=== PATIENT | female | born 1940 | race Caucasian/White ===

== ENCOUNTER 2020-10-06 07:31 | Emergency (ER) | payer MEDICARE, SELFPAY ==
--- NOTE | ~2020-10-06 | XR_ITS ---
EXAMINATION: XR knee RT 4V CLINICAL INFORMATION: Reason for Exam fall COMPARISON: None available at the time of this dictation. TECHNIQUE: frontal, lateral, tunnel and patella sunrise views FINDINGS: BONES: No fracture or dislocation is present. JOINTS: Mild narrowing of joint spaces suggest degenerative osteoarthritis. SOFT TISSUE: Normal XR/XR knee RT 4V IMPRESSION: Mild DJD.
--- NOTE | ~2020-10-06 | XR_ITS ---
EXAMINATION: XR chest 1V CLINICAL INFORMATION: Fall COMPARISON: None TECHNIQUE: XR chest 1V Tubes and lines: None Lungs and [place]: Mild interstitial peribronchial cuffing nonspecific could be chronic, no dense consolidation. Pleura: Normal. Costophrenic angles are sharp. No pneumothorax. Heart and mediastinum: The mediastinum is within normal limits.. Bones: Skeletal structures included are normal for patient's age. XR/XR chest 1V IMPRESSION: Mild interstitial peribronchial cuffing nonspecific might be chronic. No dense consolidation. No pleural effusion. No evidence of acute thoracic injury.
--- NOTE | ~2020-10-06 | CT_ITS ---
EXAMINATION: CT HEAD WITHOUT CONTRAST CLINICAL INFORMATION: Head pain status post fall, on Coumadin, rule out intracranial abnormality. COMPARISON: None TECHNIQUE: Contiguous axial imaging was performed from the skull base to vertex without intravenous administration of contrast. Coronal and sagittal reformatted images were obtained. This CT examination was performed using dose optimization techniques as appropriate, variously including the following: *Automated exposure control *Adjustment of mA and/or kV according to patient size (this includes techniques or standardized protocols for targeted exams where dose is matched to indication/reason for exam; i.e. extremities or head) *Use of iterative reconstruction technique DLP: 559 mGy-cm FINDINGS: There is no evidence of acute intracranial hemorrhage or territorial infarction. No abnormal mass effect or midline shift is seen. [place] to white matter differentiation is well preserved. No extra-axial fluid collections are identified. The ventricles are normal in size. There is no abnormal attenuation within the brain parenchyma. There is incidental note of prominent hyperostosis frontalis interna. No acute bony calvarium abnormality is seen. The mastoid air cells and visualized portions of the paranasal sinuses are well aerated. CT/CT head/brain wo con IMPRESSION: No acute intracranial pathology.
[2020-10-06 07:35] VITALS: BP 158/70; PULSE 97; RESP 16; TEMP 36.6; O2SAT 98; BMI 34.2
--- NOTE | 2020-10-06 07:36 | ED_ITS ---
HPI - Weakness General Chief complaint: Fall Stated complaint: weakness, little fall Time Seen by Provider: 10/06/20 07:36 Source: patient and EMS Mode of arrival: EMS Limitations: no limitations History of Present Illness HPI Narrative: 80 yo female with HTN, DVT on coumadin notes she got up today and unsure why but she fell, she had no preceding symptoms, no LOC, does not think she hit her head, EMS called for lift assist but patient wanted to be evaluated MD Complaint: generalized weakness Onset (ago): day(s) (today) Duration: improved Location: generalized Migration: none Severity: moderate Quality: tingling Relieving factors: none Exacerbating factors: none Associated symptoms: denies other symptoms Related Data Allergies Allergy/AdvReac Type Severity Reaction Status Date / Time iodine Allergy Rash Verified 10/06/20 07:42 Penicillins [PCN] Allergy Rash Verified 10/06/20 07:42 Review of Systems Review of Systems: Constitutional : No Weight loss, No Fever, No Chills, No Fatigue, No Malaise ENT/Mouth : No sore throat, No Rhinorrhea Eyes: No Eye Pain, No Swelling, No Redness Cardiovascular : No Chest Pain, No SOB, No Dyspnea on Exertion, No Orthopnea, No Edema, No Palpitations Respiratory : No Cough, No Sputum, No Wheezing Gastrointestinal : No Nausea, No Vomiting, No Diarrhea, No Constipation, No ab dominal Pain, No Hematochezia, No Melena Genitourinary : No Dysuria, No Urinary Frequency, No Hematuria, Musculoskeletal : pos R knee joint pain, No Myalgias, No Joint Swelling Skin : No Skin Lesions, No rash Neuro : pos Weakness, No Numbness, No Dizziness, No Headache Psych : No Anxiety/Panic, No Depression All other systems reviewed and are negative [facility] Past Medical History Attestation statement: The following information was validated with the patient. Medical History Diabetes DVT (deep venous thrombosis) Social History Social History Alcohol intake: never Smoked in Last 30 Days: No Use of substances other than those prescribed or required for medical reasons: No Advance Directives: No Advance Directives Information Provided: No Physical Exam Vital Signs: Vital Signs: Last Vital Signs Temp 97.9 F 10/06/20 07:35 Pulse 96 10/06/20 09:30 Resp 16 10/06/20 09:30 BP 147/61 H 10/06/20 09:30 Pulse Ox 96 10/06/20 09:30 Body Mass Index 34.2 Appearance: Alert. Oriented X3. No acute distress. Eyes: Pupils equal, round and reactive to light. ENT: Pharynx normal. Neck: Normal inspection. Neck supple. CVS: Normal heart rate and rhythm. Pulses normal. Respiratory: No respiratory distress. Breath sounds normal. Abdomen: Soft and nontender. Skin: Skin warm and dry. Normal skin color. Normal skin turgor. Extremities: No lower extremity edema. No calf ttp mild ttp R knee Neuro: Oriented X 3. No motor deficit. No sensory deficit. Course Course Course Narrative: feels fine up and to bathroom without issue steady gait can be DC home MDM - Weakness MDM Narrative Medical decision making narrative: 80 yo female with DM, DVT on coumadin who comes in with c/o abrupt fall unsure why this happened denies sig injury no CP/SOB at this time will need labs, EKG, CT head given coumadin use, repeat troponin, ambulation trial dispo per results and findings, patient denies depression and states she is okay Lab Data Result diagrams: 10/06/20 08:36 10/06/20 08:36 Labs: Lab Results 10/06/20 10/06/20 10/06/20 Range/Units 08:36 08:36 08:36 WBC 10.8 (4.8-10.8) X10*3/uL RBC 4.58 (4.20-5.50) X10*6/uL Hgb 13.8 (12.0-16.0) g/dl Hct 42.3 (37-47) % MCV 92.4 (80-98) fL MCH 30.1 (27.0-33.0) pg MCHC 32.6 (31.0-35.0) g/dl RDW 12.8 (11.0-16.0) % Plt Count 294 (160-400) X10*3/uL MPV 10.8 (9.4-12.3) fL Immature Gran % (Auto) 0.7 H (0.0-0.4) % Neut % (Auto) 73.5 H (45-73) % Lymph % (Auto) 14.5 L (20-40) % [place] % (Auto) 6.5 (2-11) % Eos % (Auto) 4.1 H (0-4) % Baso % (Auto) 0.7 (0-2) % Lymph # (Auto) 1.6 (1.2-4.9) X10*3/uL [place] # (Auto) 0.7 (0.1-1.2) X10*3/uL Eos # (Auto) 0.4 (0.0-0.4) X10*3/uL Baso # (Auto) 0.1 (0.0-0.2) X10*3/uL Abs Immat Gran (auto) 0.08 H (0.00-0.03) X10*3/uL Absolute Neuts (auto) 8.0 (2.0-8.3) X10*3/uL Absolute Nucleated RBC 0.000 (0.0-0.012) X10*3/uL Nucleated RBC % (auto) 0.0 (0.0-0.2) /100WBC PT 49.2 H (10.8-13.0) SEC INR 4.1 H (0.9-1.1) APTT 58.9 H (24.1-38.0) SEC Sodium 138 (135-145) mmol/L Potassium 3.7 (3.3-5.1) mmol/L Chloride 105 (96-108) mmol/L Carbon Dioxide 23 (22-29) mmol/L Anion Gap 14 (12-20) BUN 16 (9-16) mg/dL Creatinine 1.00 (0.5-1.4) mg/dL Estim Creat Clear Calc 43.2 Estimated GFR 54 Random Glucose 359 H* (60-115) mg/dL Calcium 9.0 (8.4-10.2) mg/dL Magnesium 2.1 (1.6-2.6) mg/dL Total Bilirubin 0.4 (0.0-1.0) mg/dL Direct Bilirubin 0.2 (0.0-0.5) mg/dL AST 10 (5-31) U/L ALT 11 (0-31) U/L Alkaline Phosphatase 98 (39-117) U/L Total Creatine Kinase 45 (26-140) U/L Troponin I High Sens (<3.5-17.0) ng/L Total Protein 7.0 (6.5-8.0) g/dL Albumin 3.9 (3.5-5.0) g/dL Urine Color Urine Appearance Urine pH (5.0-8.0) Ur Specific [place] (1.005-1.025) Urine Protein (NEG-TRACE) MG/DL Urine Glucose (UA) (NEG) MG/DL Urine Ketones (NEG) MG/DL Urine Blood (NEG) Urine Nitrite (NEG) Ur Leukocyte Esterase (NEG) Urine RBC (0) /HPF Urine WBC (0-4) /HPF Urine WBC Clumps Ur Squamous Epith Cells /LPF Urine Bacteria /LPF COVID-19 (MANDEEP) (Negative) COVID-19 Clin Com 10/06/20 10/06/20 10/06/20 Range/Units 08:36 08:36 08:36 WBC (4.8-10.8) X10*3/uL RBC (4.20-5.50) X10*6/uL Hgb (12.0-16.0) g/dl Hct (37-47) % MCV (80-98) fL MCH (27.0-33.0) pg MCHC (31.0-35.0) g/dl RDW (11.0-16.0) % Plt Count (160-400) X10*3/uL MPV (9.4-12.3) fL Immature Gran % (Auto) (0.0-0.4) % Neut % (Auto) (45-73) % Lymph % (Auto) (20-40) % [place] % (Auto) (2-11) % Eos % (Auto) (0-4) % Baso % (Auto) (0-2) % Lymph # (Auto) (1.2-4.9) X10*3/uL [place] # (Auto) (0.1-1.2) X10*3/uL Eos # (Auto) (0.0-0.4) X10*3/uL Baso # (Auto) (0.0-0.2) X10*3/uL Abs Immat Gran (auto) (0.00-0.03) X10*3/uL Absolute Neuts (auto) (2.0-8.3) X10*3/uL Absolute Nucleated RBC (0.0-0.012) X10*3/uL Nucleated RBC % (auto) (0.0-0.2) /100WBC PT (10.8-13.0) SEC INR (0.9-1.1) APTT (24.1-38.0) SEC Sodium (135-145) mmol/L Potassium (3.3-5.1) mmol/L Chloride (96-108) mmol/L Carbon Dioxide (22-29) mmol/L Anion Gap (12-20) BUN (9-16) mg/dL Creatinine (0.5-1.4) mg/dL Estim Creat Clear Calc Estimated GFR Random Glucose (60-115) mg/dL Calcium (8.4-10.2) mg/dL Magnesium (1.6-2.6) mg/dL Total Bilirubin (0.0-1.0) mg/dL Direct Bilirubin (0.0-0.5) mg/dL AST (5-31) U/L ALT (0-31) U/L Alkaline Phosphatase (39-117) U/L Total Creatine Kinase (26-140) U/L Troponin I High Sens < 3.5 (<3.5-17.0) ng/L Total Protein (6.5-8.0) g/dL Albumin (3.5-5.0) g/dL Urine Color YELLOW Urine Appearance CLOUDY Urine pH 6.0 (5.0-8.0) Ur Specific [place] 1.015 (1.005-1.025) Urine Protein TRACE (NEG-TRACE) MG/DL Urine Glucose (UA) >=1000 H (NEG) MG/DL Urine Ketones NEG (NEG) MG/DL Urine Blood 2+ H (NEG) Urine Nitrite POS H (NEG) Ur Leukocyte Esterase 1+ H (NEG) Urine RBC 1-4 (0) /HPF Urine WBC 76-150 H (0-4) /HPF Urine WBC Clumps NOTED Ur Squamous Epith Cells NONE /LPF Urine Bacteria 1+ /LPF COVID-19 (MANDEEP) Negative (Negative) COVID-19 Clin Com See Note 10/06/20 Range/Units 10:38 WBC (4.8-10.8) X10*3/uL RBC (4.20-5.50) X10*6/uL Hgb (12.0-16.0) g/dl Hct (37-47) % MCV (80-98) fL MCH (27.0-33.0) pg MCHC (31.0-35.0) g/dl RDW (11.0-16.0) % Plt Count (160-400) X10*3/uL MPV (9.4-12.3) fL Immature Gran % (Auto) (0.0-0.4) % Neut % (Auto) (45-73) % Lymph % (Auto) (20-40) % [place] % (Auto) (2-11) % Eos % (Auto) (0-4) % Baso % (Auto) (0-2) % Lymph # (Auto) (1.2-4.9) X10*3/uL [place] # (Auto) (0.1-1.2) X10*3/uL Eos # (Auto) (0.0-0.4) X10*3/uL Baso # (Auto) (0.0-0.2) X10*3/uL Abs Immat Gran (auto) (0.00-0.03) X10*3/uL Absolute Neuts (auto) (2.0-8.3) X10*3/uL Absolute Nucleated RBC (0.0-0.012) X10*3/uL Nucleated RBC % (auto) (0.0-0.2) /100WBC PT (10.8-13.0) SEC INR (0.9-1.1) APTT (24.1-38.0) SEC Sodium (135-145) mmol/L Potassium (3.3-5.1) mmol/L Chloride (96-108) mmol/L Carbon Dioxide (22-29) mmol/L Anion Gap (12-20) BUN (9-16) mg/dL Creatinine (0.5-1.4) mg/dL Estim Creat Clear Calc Estimated GFR Random Glucose (60-115) mg/dL Calcium (8.4-10.2) mg/dL Magnesium (1.6-2.6) mg/dL Total Bilirubin (0.0-1.0) mg/dL Direct Bilirubin (0.0-0.5) mg/dL AST (5-31) U/L ALT (0-31) U/L Alkaline Phosphatase (39-117) U/L Total Creatine Kinase (26-140) U/L Troponin I High Sens < 3.5 (<3.5-17.0) ng/L Total Protein (6.5-8.0) g/dL Albumin (3.5-5.0) g/dL Urine Color Urine Appearance Urine pH (5.0-8.0) Ur Specific [place] (1.005-1.025) Urine Protein (NEG-TRACE) MG/DL Urine Glucose (UA) (NEG) MG/DL Urine Ketones (NEG) MG/DL Urine Blood (NEG) Urine Nitrite (NEG) Ur Leukocyte Esterase (NEG) Urine RBC (0) /HPF Urine WBC (0-4) /HPF Urine WBC Clumps Ur Squamous Epith Cells /LPF Urine Bacteria /LPF COVID-19 (MANDEEP) (Negative) COVID-19 Clin Com ECG Data Attestation: I personally reviewed and interpreted this ECG as follows: ECG interpretation date: 10/06/20 ECG interpretation time: 08:05 Interpretation: Rate: 92 Rhythm: NSR [place]: left Normal P waves. Normal KAREN. Normal QRS complex. ST T wave : normal , no SAL qTC: normal prior studies: no acute ischemia The study has been interpreted contemporaneously by me. . Discharge Plan Discharge Clinical Impression: Fall, Elevated INR Patient Disposition: Home, Self-Care Instructions: Fall Prevention (ED), Elevated INR (ED) Additional Instructions: INR 4.1 please hold coumadin for 1 day return to ED for any worsening symptoms or concerns Referrals: Fortino Partida MD [Primary Care Provider] - 2 days
--- NOTE | 2020-10-06 07:43 | ECG_ITS ---
Test Reason : GENERAL WEAKNESS Blood Pressure : / mmHG Vent. Rate : 092 BPM Atrial Rate : 092 BPM P-R Int : 170 ms QRS Dur : 088 ms QT Int : 344 ms P-R-T Axes : 045 007 037 degrees QTc Int : 425 ms Normal sinus rhythm Normal ECG No previous ECGs available Referred By: Jojo Roy Electronically Signed By:HIMANSHU HERRERA
[2020-10-06 08:52] LABS: MANUAL DIFF FLAG NO
[2020-10-06 08:56] LABS: Basophils Absolute Auto 0.1 X10*3/uL (0.0-0.2); Basophils Percent Auto 0.7 % (0-2); Eosinophils Absolute Auto 0.4 X10*3/uL (0.0-0.4); Eosinophils Percent Auto 4.1 % (0-4); Hematocrit 42.3 % (37-47); Hemoglobin 13.8 g/dl (12.0-16.0); Imm Gran Abs Auto 0.08 X10*3/uL (0.00-0.03); Imm Gran Pct Auto 0.7 % (0.0-0.4); Lymphocytes Absolute Auto 1.6 X10*3/uL (1.2-4.9); Lymphocytes Percent Auto 14.5 % (20-40); Mean Corpuscular HGB Conc 32.6 g/dl (31.0-35.0); Mean Corpuscular Hemoglobin 30.1 pg (27.0-33.0); Mean Corpuscular Volume 92.4 fL (80-98); Mean Platelet Volume 10.8 fL (9.4-12.3); Monocytes Absolute Auto 0.7 X10*3/uL (0.1-1.2); Monocytes Percent Auto 6.5 % (2-11); Neutrophils Percent Auto 73.5 % (45-73); Platelet Count 294 X10*3/uL (160-400); Red Blood Count 4.58 X10*6/uL (4.20-5.50); Red Cell Distribution Width 12.8 % (11.0-16.0); White Blood Count 10.8 X10*3/uL (4.8-10.8)
[2020-10-06 09:01] LABS: Glucose Urine UA >=1000 MG/DL (NEG); Leukocyte Esterase Urine 1+ (NEG); Nitrite Urine POS (NEG); Specific Gravity - Urine 1.015 (1.005-1.025); UACC Culture Trigger YES; Urine Blood 2+ (NEG); Urine Ketones NEG (NEG); Urine Protein TRACE MG/DL (NEG-TRACE)
[2020-10-06 09:02] LABS: Appearance Urine CLOUDY; Color Urine YELLOW
[2020-10-06 09:07] LABS: COVID-19 Test Negative (Negative)
[2020-10-06 09:09] LABS: INTERNATIONAL NORM RATIO 4.1 (0.9-1.1); Prothrombin Time 49.2 SEC (10.8-13.0)
[2020-10-06 09:12] LABS: Bacteria Urine 1+ /LPF; Partial Thromboplastin Time 58.9 SEC (24.1-38.0); WBC Clumps Urine NOTED
[2020-10-06 09:19] LABS: Alanine Aminotransferase 11 U/L (0-31); Albumin Level 3.9 g/dL (3.5-5.0); Alkaline Phosphatase 98 U/L (39-117); Anion Gap 14 (12-20); Aspartate Amino Transferase 10 U/L (5-31); Bilirubin Direct 0.2 mg/dL (0.0-0.5); Bilirubin Total 0.4 mg/dL (0.0-1.0); Blood Urea Nitrogen 16 mg/dL (9-16); Carbon Dioxide 23 mmol/L (22-29); Chloride 105 mmol/L (96-108); Creatinine Clr Calc Pharmacy 43.2; Estimated Glomerular Filt Rate 54; Glucose Random 359 mg/dL (60-115); Magnesium 2.1 mg/dL (1.6-2.6); Potassium 3.7 mmol/L (3.3-5.1); Sodium 138 mmol/L (135-145); Troponin-I High Sensitivity < 3.5 ng/L (<3.5-17.0)
[2020-10-06 09:30] VITALS: BP 147/61; PULSE 96; RESP 16; O2SAT 96
--- NOTE | 2020-10-06 09:44 | PC.NURSE ---
With pt's permission, her granddaughter was updated with pts status. Pt ambulated to BR with minimal assist.
[2020-10-06 11:10] LABS: Troponin-I High Sensitivity < 3.5 ng/L (<3.5-17.0)
== END 2020-10-06 12:04 | disposition home or self-care (01) ==
PROVIDERS: Emergency Provider Emergency Medicine; PCP Internal Medicine
DX: R79.1 Abnormal coagulation profile (principal); Z91.81 History of falling; Z20.822 Contact with and (suspected) exposure to COVID-19; E11.9 Type 2 diabetes mellitus without complications; Z86.718 Personal history of other venous thrombosis and embolism; Z79.01 Long term (current) use of anticoagulants
CPT/HCPCS: 36415; 70450; 71045; 73564; 80048; 80076; 81001; 81003; 82550; 83735; 84484; 85025; 85610; 85730; 87086; 87088; 87186; 87635; 93005; 99284

== ENCOUNTER 2021-04-04 11:58 | Inpatient (IN) | payer MEDICARE, SELFPAY ==
--- NOTE | ~2021-04-04 | CT_ITS ---
EXAMINATION: CT BRAIN AND CT CERVICAL SPINE WITHOUT CONTRAST. CLINICAL INFORMATION: Fall on Coumadin. COMPARISON: None TECHNIQUE: 5 mm thin axial and reformatted 2 mm thin sagittal and coronal images of brain were obtained. Subsequently 3 mm thin axial and reformatted 2 mm within sagittal and coronal images of cervical spine were obtained. DL [id number] FINDINGS: BRAIN: There is no acute intra-axial, extra-axial bleed, masses or midline shift. There is no acute infarct in evolution. There is no edema. The redding to white differentiation maintained. The lateral ventricles are symmetrical in size and configuration without enlargement. There is benign hyperostosis frontalis interna. No calvarial fracture abnormality seen. There is no scalp soft tissue abnormality. Bilateral paranasal sinuses and mastoid air cells are well-aerated. CERVICAL SPINE: There is mild straightening of cervical lordosis. The vertebral heights and alignment is normal. There is loss of C2-C3, C3-C4, C5-C6, C6-C7 and C7-T1 disc heights. There is no acute fracture, dislocation or subluxation. The craniovertebral junction and the C1-C2 alignment is normal. The central trachea and airway is widely patent. Visualized bilateral parotid, submandibular and thyroid lobes are symmetrical. No neck mass or abnormal lymphadenopathy seen. The lung apices are clear. CT/CT cervical spine wo con IMPRESSION: No acute intracranial process seen. No acute fracture, dislocation or subluxation cervical spine. There is mild straightening of cervical lordosis. There are degenerative disc changes C2-C3, C3-C4, C5-C6, C6-C7 and C7-T1 disc levels.
--- NOTE | ~2021-04-04 | CT_ITS ---
EXAMINATION: CT BRAIN AND CT CERVICAL SPINE WITHOUT CONTRAST. CLINICAL INFORMATION: Fall on Coumadin. COMPARISON: None TECHNIQUE: 5 mm thin axial and reformatted 2 mm thin sagittal and coronal images of brain were obtained. Subsequently 3 mm thin axial and reformatted 2 mm within sagittal and coronal images of cervical spine were obtained. DL [id number] FINDINGS: BRAIN: There is no acute intra-axial, extra-axial bleed, masses or midline shift. There is no acute infarct in evolution. There is no edema. The redding to white differentiation maintained. The lateral ventricles are symmetrical in size and configuration without enlargement. There is benign hyperostosis frontalis interna. No calvarial fracture abnormality seen. There is no scalp soft tissue abnormality. Bilateral paranasal sinuses and mastoid air cells are well-aerated. CERVICAL SPINE: There is mild straightening of cervical lordosis. The vertebral heights and alignment is normal. There is loss of C2-C3, C3-C4, C5-C6, C6-C7 and C7-T1 disc heights. There is no acute fracture, dislocation or subluxation. The craniovertebral junction and the C1-C2 alignment is normal. The central trachea and airway is widely patent. Visualized bilateral parotid, submandibular and thyroid lobes are symmetrical. No neck mass or abnormal lymphadenopathy seen. The lung apices are clear. CT/CT head/brain wo con IMPRESSION: No acute intracranial process seen. No acute fracture, dislocation or subluxation cervical spine. There is mild straightening of cervical lordosis. There are degenerative disc changes C2-C3, C3-C4, C5-C6, C6-C7 and C7-T1 disc levels.
--- NOTE | ~2021-04-04 | CT_ITS ---
EXAMINATION: CTA CHEST PE STUDY CLINICAL INFORMATION: syncope, hx DVT w/ subtherapeutic INR, elevated DDIMER COMPARISON: No pertinent prior studies are available for comparison. TECHNIQUE: Prior to contrast administration, noncontrast localization images were obtained. After the administration of 75 mL of Omnipaque 350 IV contrast, contiguous thin slice helical images were obtained through the thorax. Reformatted MIP images in the coronal and sagittal planes were obtained at the acquisition workstation. This CT examination was performed using dose optimization techniques as appropriate, variously including the following: *Automated exposure control *Adjustment of mA and/or kV according to patient size (this includes techniques or standardized protocols for targeted exams where dose is matched to indication/reason for exam; i.e. extremities or head) *Use of iterative reconstruction technique DLP: 410 mGy-cm. FINDINGS: The bolus timing on this study was acceptable for visualization of the pulmonary arterial tree. There are no intraluminal pulmonary arterial filling defects present to suggest central pulmonary embolism. Distal branch vessels are partially obscured by motion artifact but no definitive pulmonary emboli seen. There is asymmetric elevation of the right hemidiaphragm. Minimal dependent atelectatic changes. Otherwise the lungs are clear. No abnormal pulmonary nodules or masses are appreciated. No significant hilar or mediastinal adenopathy. There is no evidence of pleural effusion or pneumothorax. The heart is normal in size. No evidence of ventricular septal bowing or right heart strain. Great vessels are normal. Otherwise the mediastinum is unremarkable. There is no pericardial effusion or pericardial thickening. Limited evaluation of the upper abdominal viscera demonstrates scattered splenic granulomas. CT/CT angio chest PE protocol IMPRESSION: No evidence for central pulmonary emboli. Distal branch vessels are partially obscured by motion but otherwise unremarkable. No focal airspace disease. VTE: Negative
--- NOTE | 2021-04-04 12:08 | ECG_ITS ---
Test Reason : FALL Blood Pressure : / mmHG Vent. Rate : 088 BPM Atrial Rate : 088 BPM P-R Int : 154 ms QRS Dur : 084 ms QT Int : 372 ms P-R-T Axes : 037 002 050 degrees QTc Int : 450 ms Normal sinus rhythm Otherwise normal ECG When compared with ECG of 06-OCT-2020 08:01, No significant changes seen Referred By: Ann-Marie Kelly Electronically Signed By:Seng Hatch
--- NOTE | 2021-04-04 12:21 | ED_ITS ---
HPI - Syncope General Chief Complaint: Fall Stated Complaint: fall Time Seen by Provider: 04/04/21 12:07 Source: patient and EMS Mode of arrival: EMS Limitations: no limitations History of Present Illness HPI narrative: 80 y/o female with history of diabetes, HTN, DVT on Coumadin, history of fall in Sep 2019, hx UTI, DM who presents to the ER from home via EMS after her cleaning lady found her on the floor this morning. She was covered in urine and stool. She has not recollection of falling or any events preceding her fall. She denies any specific joint pain and reports being sore all over. She also c/o some left sided neck pain. No headache. She does not know if she lost consciousness and does not know how long she was on the floor. EMS reports possible syncopal event last night. MD complaint: collapsed Onset (ago): unknown Description of event: post-event confusion and incontinence Prodromal symptoms: none Witnessed: No Injuries sustained associated with event: none Current symptoms: back to baseline Treatments prior to arrival: none Related Data Home Medications Medication Instructions Recorded Confirmed furosemide 20 mg tablet 1 tab PO DAILY 04/04/21 04/04/21 glipizide 5 mg tablet 1 tab PO BID 04/04/21 04/04/21 warfarin 4 mg tablet 1 tab PO DAILY 04/04/21 04/04/21 Allergies Allergy/AdvReac Type Severity Reaction Status Date / Time iodine Allergy Rash Verified 10/06/20 07:42 Penicillins [PCN] Allergy Rash Verified 10/06/20 07:42 Review of Systems Constitutional: Constitutional: Reports body ache(s), Denies chills, Denies fever(s), Denies headache(s), Reports malaise and Reports weakness Eyes: Eyes: Reports no additional eye complaints ENT: Denies headache(s), Reports neck pain and Denies sore throat Cardiovascular: Cardiovascular: Denies cool extremities, Denies chest pain, Denies chest pain at rest, Denies edema, Denies lightheadedness and Denies dyspnea Respiratory: Respiratory: Denies chest congestion, Denies cough, Denies pain on inspiration, Denies dyspnea and Denies wheezing Gastrointestinal: Gastrointestinal: Denies abdominal pain, Denies diarrhea, Denies nausea and Denies vomiting Genitourinary: Genitourinary: Denies hematuria and Denies dysuria Musculoskeletal: Musculoskeletal: Reports myalgias, Reports neck pain and Reports stiffness Integumentary/Breasts: Skin/Breast: Denies rash Neurologic: Reports confusion, Denies headache(s), Denies focal weakness, Reports memory loss, Denies seizure-like activity and Reports weakness Psychiatric: Psychiatric: Reports confusion and Reports memory loss Hematologic/Lymphatic: Hematologic/Lymphatic: Denies easy bleeding and Denies easy bruising Allergic/Immunologic: Allergic/Immunologic: Denies wheezing PMFSH Past Medical History Attestation statement: The following information was validated with the patient. Medical History Diabetes DVT (deep venous thrombosis) Social History Social History Alcohol intake: never Advance Directives: No Advance Directives Information Provided: Yes Physical Exam Vital Signs: Vital Signs: Last Vital Signs Temp 98.1 F 04/04/21 14:38 Pulse 96 04/04/21 14:38 Resp 21 H 04/04/21 14:38 BP 156/94 H 04/04/21 14:38 Pulse Ox 95 04/04/21 14:38 Body Mass Index 34.9 Appearance: Alert. Oriented X3. No acute distress. Head: atraumatic, normocephalic Eyes: Pupils equal, round and reactive to light. ENT: Pharynx normal. Neck: Normal inspection. Neck supple. No cervical spinal tenderness, mild left sided soft tissue tenderness. CVS: Normal heart rate and rhythm. Pulses normal. Respiratory: No respiratory distress. Breath sounds normal. Abdomen: Obese, Soft and nontender. +BS x4 Skin: Skin warm and dry. Normal skin color. Normal skin turgor. No rashes. Extremities: Atraumatic. No lower extremity edema. Diffuse soft tissue tenderness and joint tenderness. No point tenderness. No skin changes. Neuro: AAOx3, follow simple commands. moves all extremities. Ambulates with a slow but steady gait with help of a walker Const: General: confusion Orientation/consciousness: confusion Neuro: General: confusion Course Course Course Narrative: 80 y/o female with history of HTN, DM, hx DVT previously on Coumadin presenting with possible syncopal event vs fall with prolonged downtime. Events unclear. She is hemodynamically stable on arrival. Covered in urine and stool. She reports body aches and pains but no specific joint. No headache. She reports some left sided neck pain, worse with movement. No focal neuro deficits but very confused with events - does not remember falling OR deshaun ng on the floor at all. Will get CT head/neck, EKG, CPK, UA, lab and infectious workup. Anticipate admission. Reevaluation(s) Reevaluation #1: Glucose 360's. BUN elevated 38 & mild elevation of CPK, likely mild dehydration. INR is subtherapeutic at 1.2. She reports she is still on Coumadin but she has been forgetting to take her medications. She does not know the names of her meds. Pharmacy med rec order placed - apparently patient uses a mail order pharmacy out of [place] and there is no local claim history of current med list is unknown. Given her syncopal event and subtherapeutic INR will plan for CTA chest to r/o PE as possible etiology. Reevaluation #2: Delay in CTA due to inadequate IV access. Nursing placed US guided PIV for CTA. Straight cath urine same grossly positive for infection. Hx Kelbsiella UTI in the past sensitive to cephalosporins - IV rocephin ordered as well as blood cultures. Lactic acid is normal. She remains afebrile and hemodynamically stable and is ambulating with a slow but steady gait with the assistance of 1 and a walker. Reevaluation #3: CTA pending. Patient remains somewhat confused and is difficult to obtain a history from. Likely from infection/. She reports DVT x2 and is on lifelong anticoagulation. Will give dose of SC lovenox now. Additional Reevaluation(s): CTA Negative for central PE. 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 Dr. Serrano TT for admission at 5:29pm. MDM - Syncope Medical Records Attestation: I reviewed the patient's medical records. Lab Data Attestation: I reviewed the patient's lab results. Result diagrams: 04/04/21 13:10 04/04/21 13:10 Labs: Lab Results 04/04/21 04/04/21 04/04/21 Range/Units 13:10 13:10 13:10 WBC 12.9 H (4.8-10.8) X10*3/uL RBC 5.07 (4.20-5.50) X10*6/uL Hgb 15.1 (12.0-16.0) g/dl Hct 46.3 (37-47) % MCV 91.3 (80-98) fL MCH 29.8 (27.0-33.0) pg MCHC 32.6 (31.0-35.0) g/dl RDW 13.1 (11.0-16.0) % Plt Count 322 (160-400) X10*3/uL MPV 10.7 (9.4-12.3) fL Immature Gran % (Auto) 0.6 H (0.0-0.4) % Neut % (Auto) 78.0 H (45-73) % Lymph % (Auto) 12.0 L (20-40) % [place] % (Auto) 7.2 (2-11) % Eos % (Auto) 1.7 (0-4) % Baso % (Auto) 0.5 (0-2) % Lymph # (Auto) 1.6 (1.2-4.9) X10*3/uL [place] # (Auto) 0.9 (0.1-1.2) X10*3/uL Eos # (Auto) 0.2 (0.0-0.4) X10*3/uL Baso # (Auto) 0.1 (0.0-0.2) X10*3/uL Abs Immat Gran (auto) 0.08 H (0.00-0.03) X10*3/uL Absolute Neuts (auto) 10.1 H (2.0-8.3) X10*3/uL Absolute Nucleated RBC 0.000 (0.0-0.012) X10*3/uL Nucleated RBC % (auto) 0.0 (0.0-0.2) /100WBC PT 13.2 H (9.9-13.0) SEC INR 1.2 H (0.9-1.1) APTT 28.4 (24.1-38.0) SEC D-Dimer 390 NG/ML Sodium 139 (135-145) mmol/L Potassium 4.2 (3.3-5.1) mmol/L Chloride 103 (96-108) mmol/L Carbon Dioxide 21 L (22-29) mmol/L Anion Gap 19 (12-20) BUN 38 H D (9-16) mg/dL Creatinine 1.26 (0.5-1.4) mg/dL Estim Creat Clear Calc 36.1 Estimated GFR 41 Random Glucose 369 H* (60-115) mg/dL Lactic Acid (0.5-2.0) mmol/L Calcium 10.0 D (8.4-10.2) mg/dL Magnesium 2.4 (1.6-2.6) mg/dL Total Bilirubin 0.8 (0.0-1.0) mg/dL Direct Bilirubin 0.4 (0.0-0.5) mg/dL AST 22 D (5-31) U/L ALT 24 (0-31) U/L Alkaline Phosphatase 107 (39-117) U/L Total Creatine Kinase 280 H D (26-140) U/L Total Protein 7.6 (6.5-8.0) g/dL Albumin 4.2 (3.5-5.0) g/dL Urine Color Urine Appearance Urine pH (5.0-8.0) Ur Specific [place] (1.005-1.025) Urine Protein (NEG-TRACE) MG/DL Urine Glucose (UA) (NEG) MG/DL Urine Ketones (NEG) MG/DL Urine Blood (NEG) Urine Nitrite (NEG) Ur Leukocyte Esterase (NEG) Urine RBC (0) /HPF Urine WBC (0-4) /HPF Ur Squamous Epith Cells /LPF Ur Renal Epithelial Cell /LPF Urine Bacteria /LPF 04/04/21 04/04/21 Range/Units 13:10 14:59 WBC (4.8-10.8) X10*3/uL RBC (4.20-5.50) X10*6/uL Hgb (12.0-16.0) g/dl Hct (37-47) % MCV (80-98) fL MCH (27.0-33.0) pg MCHC (31.0-35.0) g/dl RDW (11.0-16.0) % Plt Count (160-400) X10*3/uL MPV (9.4-12.3) fL Immature Gran % (Auto) (0.0-0.4) % Neut % (Auto) (45-73) % Lymph % (Auto) (20-40) % [place] % (Auto) (2-11) % Eos % (Auto) (0-4) % Baso % (Auto) (0-2) % Lymph # (Auto) (1.2-4.9) X10*3/uL [place] # (Auto) (0.1-1.2) X10*3/uL Eos # (Auto) (0.0-0.4) X10*3/uL Baso # (Auto) (0.0-0.2) X10*3/uL Abs Immat Gran (auto) (0.00-0.03) X10*3/uL Absolute Neuts (auto) (2.0-8.3) X10*3/uL Absolute Nucleated RBC (0.0-0.012) X10*3/uL Nucleated RBC % (auto) (0.0-0.2) /100WBC PT (9.9-13.0) SEC INR (0.9-1.1) APTT (24.1-38.0) SEC D-Dimer NG/ML Sodium (135-145) mmol/L Potassium (3.3-5.1) mmol/L Chloride (96-108) mmol/L Carbon Dioxide (22-29) mmol/L Anion Gap (12-20) BUN (9-16) mg/dL Creatinine (0.5-1.4) mg/dL Estim Creat Clear Calc Estimated GFR Random Glucose (60-115) mg/dL Lactic Acid 1.8 (0.5-2.0) mmol/L Calcium (8.4-10.2) mg/dL Magnesium (1.6-2.6) mg/dL Total Bilirubin (0.0-1.0) mg/dL Direct Bilirubin (0.0-0.5) mg/dL AST (5-31) U/L ALT (0-31) U/L Alkaline Phosphatase (39-117) U/L Total Creatine Kinase (26-140) U/L Total Protein (6.5-8.0) g/dL Albumin (3.5-5.0) g/dL Urine Color YELLOW Urine Appearance TURBID Urine pH 6.0 (5.0-8.0) Ur Specific [place] 1.025 (1.005-1.025) Urine Protein 1+ H (NEG-TRACE) MG/DL Urine Glucose (UA) >=1000 H (NEG) MG/DL Urine Ketones 40 (NEG) MG/DL Urine Blood 2+ H (NEG) Urine Nitrite POS H (NEG) Ur Leukocyte Esterase 2+ H (NEG) Urine RBC 0-2 (0) /HPF Urine WBC TNTC H (0-4) /HPF Ur Squamous Epith Cells NONE /LPF Ur Renal Epithelial Cell TRACE /LPF Urine Bacteria 1+ /LPF ECG Data Attestation: I personally reviewed and interpreted this ECG as follows: Prior ECG tracings: available for review Interpretation: normal sinus rhythm, HR 88 bpm, artifact present, q wave present in lead III, no ST segment elevations or depressions. Discharge Plan Discharge Clinical Impression: Syncope, Acute UTI, Subtherapeutic international normalized ratio (INR), Acute metabolic encephalopathy Patient Disposition: Admitted As Inpatient
[2021-04-04 12:44] VITALS: BP 143/70; RESP 18; TEMP 36.6; O2SAT 97; BMI 34.9
[2021-04-04 13:17] LABS: MANUAL DIFF FLAG NO
[2021-04-04 13:19] LABS: Basophils Absolute Auto 0.1 X10*3/uL (0.0-0.2); Basophils Percent Auto 0.5 % (0-2); Eosinophils Absolute Auto 0.2 X10*3/uL (0.0-0.4); Eosinophils Percent Auto 1.7 % (0-4); Hematocrit 46.3 % (37-47); Hemoglobin 15.1 g/dl (12.0-16.0); Imm Gran Abs Auto 0.08 X10*3/uL (0.00-0.03); Imm Gran Pct Auto 0.6 % (0.0-0.4); Lymphocytes Absolute Auto 1.6 X10*3/uL (1.2-4.9); Mean Corpuscular HGB Conc 32.6 g/dl (31.0-35.0); Mean Corpuscular Hemoglobin 29.8 pg (27.0-33.0); Mean Corpuscular Volume 91.3 fL (80-98); Mean Platelet Volume 10.7 fL (9.4-12.3); Monocytes Absolute Auto 0.9 X10*3/uL (0.1-1.2); Monocytes Percent Auto 7.2 % (2-11); Neutrophils Absolute Auto 10.1 X10*3/uL (2.0-8.3); Platelet Count 322 X10*3/uL (160-400); Red Blood Count 5.07 X10*6/uL (4.20-5.50); Red Cell Distribution Width 13.1 % (11.0-16.0); White Blood Count 12.9 X10*3/uL (4.8-10.8)
[2021-04-04] MEDS: 0.9 % Sodium Chloride 1,000 ML 999 ML IVCONT (13:19)
[2021-04-04 13:26] LABS: INTERNATIONAL NORM RATIO 1.2 (0.9-1.1); Prothrombin Time 13.2 SEC (9.9-13.0)
[2021-04-04 13:29] LABS: Partial Thromboplastin Time 28.4 SEC (24.1-38.0)
[2021-04-04 13:42] LABS: Lactic Acid 1.8 mmol/L (0.5-2.0)
[2021-04-04 13:50] LABS: Alanine Aminotransferase 24 U/L (0-31); Albumin Level 4.2 g/dL (3.5-5.0); Alkaline Phosphatase 107 U/L (39-117); Anion Gap 19 (12-20); Aspartate Amino Transferase 22 U/L (5-31); Bilirubin Direct 0.4 mg/dL (0.0-0.5); Bilirubin Total 0.8 mg/dL (0.0-1.0); Blood Urea Nitrogen 38 mg/dL (9-16); Carbon Dioxide 21 mmol/L (22-29); Chloride 103 mmol/L (96-108); Creatinine Clr Calc Pharmacy 36.1; D Dimer 390 NG/ML; Estimated Glomerular Filt Rate 41; Glucose Random 369 mg/dL (60-115); Magnesium 2.4 mg/dL (1.6-2.6); Potassium 4.2 mmol/L (3.3-5.1); Sodium 139 mmol/L (135-145); Total Protein 7.6 g/dL (6.5-8.0)
--- NOTE | 2021-04-04 14:07 | PHA.MEDREC ---
Pharmacy Consult ? Medication Reconciliation Pharmacy has completed the medication reconciliation. Patient seemed confused. Patient stated none of her daughters would know her medication list. I called her contact Dana which is a friend who was did not know any information. Patient state she was a mail order pharmacy in [place] (there are a lot). There is no recent claim history. The medication on her claim history and verified with the pharmacy they were picked up are Lasix 20 QD x 30 no refills on 10/22/20, Glipizide 5mg BIDWM x 90 days filled on 10/29/20. Warfarin 4mg QD x 30 days filled 12/03/20 and Levothyroxine 112mcg QD (never picked up). Patient said she was on warfarin and thinks the dose is 4mg. Her INR is 1.2 so there is a good chance that she has not been taking it. She said she takes Lasix in the morning with something else and recognized glipizide but not sure how she takes it. Irma Cho, PharmD
[2021-04-04 14:38] VITALS: BP 156/94; PULSE 96; RESP 21; TEMP 36.7; O2SAT 95
[2021-04-04 15:11] LABS: Glucose Urine UA >=1000 MG/DL (NEG); Leukocyte Esterase Urine 2+ (NEG); Nitrite Urine POS (NEG); Specific Gravity - Urine 1.025 (1.005-1.025); UACC Culture Trigger YES; Urine Blood 2+ (NEG); Urine Ketones 40 MG/DL (NEG); Urine Protein 1+ MG/DL (NEG-TRACE)
[2021-04-04 15:13] LABS: Appearance Urine TURBID; Color Urine YELLOW
[2021-04-04 15:23] LABS: Bacteria Urine 1+ /LPF; RBC Urine 0-2 /HPF (0); Renal Epithelial Cells Urine TRACE /LPF; WBC Urine TNTC /HPF (0-4)
[2021-04-04] MEDS: iohexoL 350 MG/ML 100 ML INFUS..BTL IV (17:14)
[2021-04-04 18:35] LABS: Troponin-I High Sensitivity 4.2 ng/L (<3.5-17.0)
--- NOTE | 2021-04-04 19:00 | PC.NURSE ---
client report taken and assumed care of patient at this time. client stating the date is 44 and the month is 64. client is confused which is not her baseline ?secondary to UTI. Client speaking in clear and full sentences. At this RNs arrival antibiotic had been pending to be hung x 2 hours. Client hypertensive afebrile, states no appetite at 25% of dinner. Client denies pain.
[2021-04-04 19:07] VITALS: BP 146/72; PULSE 105; RESP 18; TEMP 37.2; O2SAT 98
[2021-04-04] MEDS: cefTRIAXone sodium 1 GM in 0.9 % Sodium Chloride 50 ML IV (19:08)
--- NOTE | 2021-04-04 19:51 | PC.NURSE ---
sterilift used to transport patient to bathroom at this time. pending admission
[2021-04-04 20:19] LABS: Influenza A PCR NEGATIVE (Negative); Influenza B PCR NEGATIVE (Negative); Resp Syncy Virus RNA Qual PCR NEGATIVE (Negative); SARS COV2 PCR INHOUSE NEGATIVE (Negative)
--- NOTE | 2021-04-04 20:54 | P.HPHOSP_ITS ---
History of Present Illness Date of Service: 04/04/21 Chief Complaint: Unwitnessed fall 80-year-old female with a past medical history of hypertension, hyperlipidemia, diabetes, history of UTIs, history of falls, history of DVT on Coumadin presented to the hospital with a chief complaint of unwitnessed fall. Patient was found by her cleaning lady this morning in the house; patient was noted be having covered in stool and urine. Patient unable to recall the events. Currently patient denies any chest pain palpitations lightheadedness or dizziness. Mentions that she takes her medications fairly okay the system intermittently; denies any fever chills. Patient is alert and oriented x3 at the time of my interview. Denies any nausea vomiting or diarrhea. Review of all other systems is negative except mentioned above ER course: E ER team mentioned the patient's exam was nonfocal, CT head and CT C-spine show ed no acute findings; CT chest showed no evidence of pulmonary embolism; INR is subtherapeutic-given a dose of Lovenox; no evidence of pneumonia; urinalysis was abnormal consistent with UTI; given antibiotics. Admitted to for further management. [facility] Medical History Diabetes DVT (deep venous thrombosis) Social History Household Members: None Housing: Condominium Do you presently have visiting nurse or other home services: Yes ([employer]) Alcohol intake: never Patient Tobacco Use Status: Never used Tobacco service: No Current occupational status: retired Meds Allergies Allergy/AdvReac Type Severity Reaction Status Date / Time iodine Allergy Rash Verified 10/06/20 07:42 Penicillins [PCN] Allergy Rash Verified 10/06/20 07:42 Active Medications: Current Medications Generic Name Dose Route Start Last Admin Trade Name Freq PRN Reason Stop Dose Admin Acetaminophen 650 mg 04/04/21 20:48 Acetaminophen 325 Mg Tablet PO Q6H PRN Pain, Mild (Pain Scale 1-3) Dextrose 25 gm 04/04/21 20:48 Dextrose 50 % 25 Gm/50 Ml Vial IVPUSH Q15M PRN per Hypoglycemia Standing Ord. Protocol Glucose 15 gm 04/04/21 20:48 Glucose Gel 15 Gm Gel..Gram. PO Q15M PRN per Hypoglycemia Standing Ord. Protocol Sodium Chloride 1,000 mls @ 75 mls/hr 04/04/21 21:00 Ns IVCONT .[id number] [facility] Ceftriaxone Sodium 1 gm/ 50 mls @ 100 mls/hr 04/04/21 21:00 Sodium Chloride IV Q24H [facility] Insulin Human Lispro 0 unit 04/04/21 21:00 Insulin Lispro 100 Unit/Ml 3 Ml Vial SUBCUT QIDACHS [facility] Protocol Melatonin 6 mg 04/04/21 20:48 Melatonin 3 Mg Tablet PO BEDTIME PRN Insomnia Pharmacy Consult 1 each 04/04/21 12:07 Consult Rx Perform Med Rec MISCELLANE ONCE PRN Consult order Senna 17.2 mg 04/04/21 20:48 Sennosides 8.6 Mg Tablet PO BEDTIME PRN Constipation Sodium Chloride 3 ml 04/05/21 00:00 0.9 % Sodium Chloride Flush 3 Ml Syringe IVFLUSH QSHIFT [facility] Home Medications Medication Instructions Recorded Confirmed Last Taken Type furosemide 20 mg tablet 1 tab PO DAILY 04/04/21 04/04/21 Unknown History glipizide 5 mg tablet 1 tab PO BID 04/04/21 04/04/21 Unknown History warfarin 4 mg tablet 1 tab PO DAILY 04/04/21 04/04/21 Unknown History Physical Exam Vital Signs and Narrative: Vital Signs: Last Vital Signs Temp 98.9 F 04/04/21 19:07 Pulse 105 H 04/04/21 19:07 Resp 18 04/04/21 19:07 BP 146/72 H 04/04/21 19:07 Pulse Ox 98 04/04/21 19:07 Body Mass Index 34.9 Gen: Appears be in no acute distress HEENT: NCAT, Moist mucosa. Pulmonary: Vesicular breath sounds, fair air entry CVS: Normal S1-S2 Abdomen: BS+, Soft, Nontender Extremities: Warm well perfused Neuro: Alert and awake. Grossly nonfocal Results Labs CBC and Chem 7: 04/06/21 08:51 04/05/21 06:13 Labs: Laboratory Results - last 24 hr 04/04/21 04/04/21 04/04/21 13:10 13:10 13:10 MCV 91.3 MCH 29.8 MCHC 32.6 RDW 13.1 Plt Count 322 MPV 10.7 Immature Gran % (Auto) 0.6 H Neut % (Auto) 78.0 H Lymph % (Auto) 12.0 L Douglas % (Auto) 7.2 Eos % (Auto) 1.7 Baso % (Auto) 0.5 Lymph # (Auto) 1.6 Douglas # (Auto) 0.9 Eos # (Auto) 0.2 Baso # (Auto) 0.1 Abs Immat Gran (auto) 0.08 H Absolute Neuts (auto) 10.1 H Absolute Nucleated RBC 0.000 Nucleated RBC % (auto) 0.0 PT 13.2 H INR 1.2 H APTT 28.4 D-Dimer 390 Anion Gap 19 Estim Creat Clear Calc 36.1 Estimated GFR 41 Random Glucose 369 H* Lactic Acid Calcium 10.0 D Magnesium 2.4 Total Bilirubin 0.8 Direct Bilirubin 0.4 AST 22 D ALT 24 Alkaline Phosphatase 107 Total Creatine Kinase 280 H D Troponin I High Sens Total Protein 7.6 Albumin 4.2 Urine Color Urine Appearance Urine pH Ur Specific [place] Urine Protein Urine Glucose (UA) Urine Ketones Urine Blood Urine Nitrite Ur Leukocyte Esterase Urine RBC Urine WBC Ur Squamous Epith Cells Ur Renal Epithelial Cell Urine Bacteria Coronavirus (PCR) Influenza Type A (PCR) Influenza Type B (PCR) RSV RNA Qual (PCR) 04/04/21 04/04/21 04/04/21 13:10 13:10 14:59 MCV MCH MCHC RDW Plt Count MPV Immature Gran % (Auto) Neut % (Auto) Lymph % (Auto) Douglas % (Auto) Eos % (Auto) Baso % (Auto) Lymph # (Auto) Douglas # (Auto) Eos # (Auto) Baso # (Auto) Abs Immat Gran (auto) Absolute Neuts (auto) Absolute Nucleated RBC Nucleated RBC % (auto) PT INR APTT D-Dimer Anion Gap Estim Creat Clear Calc Estimated GFR Random Glucose Lactic Acid 1.8 Calcium Magnesium Total Bilirubin Direct Bilirubin AST ALT Alkaline Phosphatase Total Creatine Kinase Troponin I High Sens 4.2 Total Protein Albumin Urine Color YELLOW Urine Appearance TURBID Urine pH 6.0 Ur Specific [place] 1.025 Urine Protein 1+ H Urine Glucose (UA) >=1000 H Urine Ketones 40 Urine Blood 2+ H Urine Nitrite POS H Ur Leukocyte Esterase 2+ H Urine RBC 0-2 Urine WBC TNTC H Ur Squamous Epith Cells NONE Ur Renal Epithelial Cell TRACE Urine Bacteria 1+ Coronavirus (PCR) Influenza Type A (PCR) Influenza Type B (PCR) RSV RNA Qual (PCR) 04/04/21 19:36 MCV MCH MCHC RDW Plt Count MPV Immature Gran % (Auto) Neut % (Auto) Lymph % (Auto) Douglas % (Auto) Eos % (Auto) Baso % (Auto) Lymph # (Auto) Douglas # (Auto) Eos # (Auto) Baso # (Auto) Abs Immat Gran (auto) Absolute Neuts (auto) Absolute Nucleated RBC Nucleated RBC % (auto) PT INR APTT D-Dimer Anion Gap Estim Creat Clear Calc Estimated GFR Random Glucose Lactic Acid Calcium Magnesium Total Bilirubin Direct Bilirubin AST ALT Alkaline Phosphatase Total Creatine Kinase Troponin I High Sens Total Protein Albumin Urine Color Urine Appearance Urine pH Ur Specific [place] Urine Protein Urine Glucose (UA) Urine Ketones Urine Blood Urine Nitrite Ur Leukocyte Esterase Urine RBC Urine WBC Ur Squamous Epith Cells Ur Renal Epithelial Cell Urine Bacteria Coronavirus (PCR) NEGATIVE Influenza Type A (PCR) NEGATIVE Influenza Type B (PCR) NEGATIVE RSV RNA Qual (PCR) NEGATIVE Imaging Radiologist's Impressions: Impressions Cervical Spine CT 04/04/21 12:07 IMPRESSION: No acute intracranial process seen. No acute fracture, dislocation or subluxation cervical spine. There is mild straightening of cervical lordosis. There are degenerative disc changes C2-C3, C3-C4, C5-C6, C6-C7 and C7-T1 disc levels. Head CT 04/04/21 12:08 IMPRESSION: No acute intracranial process seen. No acute fracture, dislocation or subluxation cervical spine. There is mild straightening of cervical lordosis. There are degenerative disc changes C2-C3, C3-C4, C5-C6, C6-C7 and C7-T1 disc levels. Chest CTA 04/04/21 13:52 IMPRESSION: No evidence for central pulmonary emboli. Distal branch vessels are partially obscured by motion but otherwise unremarkable. No focal airspace disease. VTE: Negative Assessment and Plan (1) Acute UTI: Status: Acute 80-year-old female with a past medical history of hypertension, hyperlipidemia, diabetes, history of DVT presented to the hospital with a chief complaint of unwitnessed fall. Unwitnessed fall: Question syncope. Patient was found covered in stool and urine. Patient unable to recall the events. Nonfocal exam CT head and CT C-spine showed no acute findings; EKG nonischemic Troponins x2 negative Fall precautions PT/OT eventually Altered mental status: Patient is oriented times 1-2. Unable to recall the time. Likely toxic metabolic encephalopathy in the setting of UTI. Will also obtain TSH and folate B12. UTI: Continue ceftriaxone. Follow up cultures. History of DVT: Continue home Coumadin. INR subtherapeutic. Patient received dose of in the ER. CT chest showed no evidence of PE Diabetes: Hold home oral hypoglycemic. Insulin sliding scale. DVT prophylaxis: Patient on Coumadin Code status: DNR/DNI. Spoke to pt's son Kapil [phone]. Quality Stroke Does the patient have a stroke diagnosis?: No VTE Prior VTE?: No VTE Risk Level:: Medical - moderate - high VTE Device Contraindication: Treatment Not Indicated VTE Drug Contraindication: Treatment Not Indicated
[2021-04-04 21:30] LABS: Glucose, Whole Blood 361 mg/dL (60-115)
[2021-04-04] MEDS: Insulin Lispro 100 UNIT/ML 3 ML VIAL SUBCUT (21:33)
[2021-04-04] MEDS: 0.9 % Sodium Chloride 1,000 ML 75 ML IVCONT (21:35)
--- NOTE | 2021-04-04 21:41 | MHC.CM.PN ---
CM met with admitted pt with bed assignment pending. IMM reviewed and signed 04/04/21@2049. Pt is very pleasant, but confused. Having difficulty finding words to express herself. Initially told CM she had 2 sons and a daughter and that they live in [facility] and [place]. Pt has 1 son and 2 daughters and her son lives in [place]. Son/HCP Thomas Chau([phone]). HCP is not on file. Copy requested. Daughter Carissa ([phone]). Daughter, Wendi, no contact information. Pt had difficulty explaining to CM how she gets her groceries. Pt seemed distressed that she could not answer many questions. Explained that CM could call her Sister in law- listed as contact or could contact her children. Pt requested I speak with her sister in law first. PCP is Grayson Muniz at [facility]. CM spoke with sister in law, Dana Pacheco ([phone]) who states that pt is not normally confused, but that she takes a lot of benedryl ,2 at a time, for headaches, stomachaches and that she is often times tired. States pt does like to go out and spends much time alone. States pt has a walker, that was her brothers, but she sometimes uses a stool to help her ambulate. States she has a silver solderer weekly that helps with grocery shopping and light housekeeping. ?[employer]. Pt does not have Meals on Wheels, as she doesn't care for them. Dana states that pt orders prepared food for delivery often. Pt does not drive. CM spoke with son/HCP Thomas Chau, who lives in [place]. Updates given on patient condition. Thomas states he has HCP. Copy requested if pt needs STR. Thomas states his mother is a DNR. Dr. Deleon aware of above conversation regarding benedryl use, code status, HCP and son's contact information. CM to follow for d/c needs.
--- NOTE | 2021-04-04 21:47 | PC.NURSE ---
RE[PORT GIVEN TO BRET ON IMC OVER FLOW.
[2021-04-04 22:21] VITALS: BMI 33.5
[2021-04-04 22:30] VITALS: BP 118/68; PULSE 100; RESP 18; TEMP 36.7; O2SAT 97
[2021-04-04] MEDS: Enoxaparin Sodium 100 MG/ML SYRINGE 85 MG SUBCUT (22:42)
[2021-04-04] MEDS: 0.9 % Sodium Chloride Flush 3 ML SYRINGE IVFLUSH (22:42)
[2021-04-05] VITALS (9 sets, daily range): BP systolic 118–157; BP diastolic 50–90; PULSE 70–101; RESP 16–18; TEMP 36.1–36.7; O2SAT 95–96
[2021-04-05 06:33] LABS: MANUAL DIFF FLAG NO
[2021-04-05 06:47] LABS: Basophils Absolute Auto 0.1 X10*3/uL (0.0-0.2); Basophils Percent Auto 0.6 % (0-2); Eosinophils Absolute Auto 0.8 X10*3/uL (0.0-0.4); Eosinophils Percent Auto 8.3 % (0-4); Hematocrit 40.6 % (37-47); Imm Gran Abs Auto 0.05 X10*3/uL (0.00-0.03); Imm Gran Pct Auto 0.5 % (0.0-0.4); Lymphocytes Absolute Auto 2.2 X10*3/uL (1.2-4.9); Lymphocytes Percent Auto 22.9 % (20-40); Mean Corpuscular Hemoglobin 29.6 pg (27.0-33.0); Mean Corpuscular Volume 92.5 fL (80-98); Mean Platelet Volume 11.5 fL (9.4-12.3); Monocytes Absolute Auto 0.8 X10*3/uL (0.1-1.2); Monocytes Percent Auto 8.2 % (2-11); Neutrophils Absolute Auto 5.6 X10*3/uL (2.0-8.3); Neutrophils Percent Auto 59.5 % (45-73); Platelet Count 298 X10*3/uL (160-400); Red Blood Count 4.39 X10*6/uL (4.20-5.50); Red Cell Distribution Width 13.2 % (11.0-16.0); White Blood Count 9.4 X10*3/uL (4.8-10.8)
[2021-04-05 07:00] LABS: INTERNATIONAL NORM RATIO 1.2 (0.9-1.1); Prothrombin Time 13.5 SEC (9.9-13.0)
[2021-04-05 07:29] LABS: Anion Gap 14 (12-20); Blood Urea Nitrogen 31 mg/dL (9-16); Carbon Dioxide 22 mmol/L (22-29); Chloride 108 mmol/L (96-108); Creatinine Clr Calc Pharmacy 45.5; Estimated Glomerular Filt Rate 55; Glucose Random 257 mg/dL (60-115); Potassium 3.4 mmol/L (3.3-5.1); Sodium 141 mmol/L (135-145)
[2021-04-05 07:36] LABS: Thyroid Stimulating Hormone 6.04 uIU/mL (0.32-4.0)
[2021-04-05 08:25] LABS: Glucose, Whole Blood 237 mg/dL (60-115)
[2021-04-05] MEDS: Insulin Lispro 100 UNIT/ML 3 ML VIAL SUBCUT ×4 (09:01→20:52)
[2021-04-05] MEDS: 0.9 % Sodium Chloride 1,000 ML 75 ML IVCONT ×2 (09:04→21:20)
--- NOTE | 2021-04-05 11:16 | P.PNIM_ITS ---
Subjective Subjective Date of Service: 04/05/21 Interval History: Seen in f/u UTI, possibl syncope Review of Systems Gen: no fever Resp: no sob, no cough CV: no chest, no TRIMBLE, no leg edema GI: No n/v, no abd pain Neuro: No confusion Physical Exam Vital Signs: Vital Signs: Last Vital Signs Temp 97.3 F 04/05/21 07:23 Pulse 88 04/05/21 07:23 Resp 18 04/05/21 07:23 BP 147/73 H 04/05/21 07:23 Pulse Ox 96 04/05/21 07:23 Body Mass Index 33.5 Const: Other: General: AO X 3, no acute distress Resp: CTA bilateral CVS: S1,S2,RRR GI: +BS, NT, no distention Skin: No rash Neuro: motor grossly intact Psych: appropriate affect Objective Data Current Medications Generic Name Dose Route Start Last Admin Trade Name Freq PRN Reason Stop Dose Admin Acetaminophen 650 mg 04/04/21 20:48 Acetaminophen 325 Mg Tablet PO Q6H PRN Pain, Mild (Pain Scale 1-3) Dextrose 25 gm 04/04/21 20:48 Dextrose 50 % 25 Gm/50 Ml Vial IVPUSH Q15M PRN per Hypoglycemia Standing Ord. Protocol Glucose 15 gm 04/04/21 20:48 Glucose Gel 15 Gm Gel..Gram. PO Q15M PRN per Hypoglycemia Standing Ord. Protocol Sodium Chloride 1,000 mls @ 75 mls/hr 04/04/21 21:00 04/05/21 09:04 Ns IVCONT 75 mls/hr .[id number] TRACY Administration Ceftriaxone Sodium 1 gm/ 50 mls @ 100 mls/hr 04/05/21 19:00 Sodium Chloride IV Q24H TRACY Insulin Human Lispro 0 unit 04/04/21 21:00 04/05/21 09:01 Insulin Lispro 100 Unit/Ml 3 Ml Vial SUBCUT 4 unit QIDACHS TRACY Administration Protocol Melatonin 6 mg 04/04/21 20:48 Melatonin 3 Mg Tablet PO BEDTIME PRN Insomnia Pharmacy Consult 1 each 04/04/21 12:07 Consult Rx Perform Med Rec MISCELLANE ONCE PRN Consult order Senna 17.2 mg 04/04/21 20:48 Sennosides 8.6 Mg Tablet PO BEDTIME PRN Constipation Sodium Chloride 3 ml 04/05/21 00:00 04/05/21 09:01 0.9 % Sodium Chloride Flush 3 Ml Syringe IVFLUSH Not Given QSHIFT [facility] Warfarin Sodium 4 mg 04/05/21 18:00 Warfarin Sodium 4 Mg Tablet PO DAILY@1800 [facility] Labs CBC & Chem 7: 04/05/21 06:13 04/05/21 06:13 Labs: Laboratory Results - last 24 hr 04/04/21 04/04/21 04/04/21 13:10 13:10 13:10 MCV 91.3 MCH 29.8 MCHC 32.6 RDW 13.1 Plt Count 322 MPV 10.7 Immature Gran % (Auto) 0.6 H Neut % (Auto) 78.0 H Lymph % (Auto) 12.0 L [place] % (Auto) 7.2 Eos % (Auto) 1.7 Baso % (Auto) 0.5 Lymph # (Auto) 1.6 [place] # (Auto) 0.9 Eos # (Auto) 0.2 Baso # (Auto) 0.1 Abs Immat Gran (auto) 0.08 H Absolute Neuts (auto) 10.1 H Absolute Nucleated RBC 0.000 Nucleated RBC % (auto) 0.0 PT 13.2 H INR 1.2 H APTT 28.4 D-Dimer 390 Anion Gap 19 Estim Creat Clear Calc 36.1 Estimated GFR 41 POC Glucose Random Glucose 369 H* Lactic Acid Calcium 10.0 D Magnesium 2.4 Total Bilirubin 0.8 Direct Bilirubin 0.4 AST 22 D ALT 24 Alkaline Phosphatase 107 Total Creatine Kinase 280 H D Troponin I High Sens Total Protein 7.6 Albumin 4.2 TSH Urine Color Urine Appearance Urine pH Ur Specific [place] Urine Protein Urine Glucose (UA) Urine Ketones Urine Blood Urine Nitrite Ur Leukocyte Esterase Urine RBC Urine WBC Ur Squamous Epith Cells Ur Renal Epithelial Cell Urine Bacteria Coronavirus (PCR) Influenza Type A (PCR) Influenza Type B (PCR) RSV RNA Qual (PCR) 04/04/21 04/04/21 04/04/21 13:10 13:10 14:59 MCV MCH MCHC RDW Plt Count MPV Immature Gran % (Auto) Neut % (Auto) Lymph % (Auto) [place] % (Auto) Eos % (Auto) Baso % (Auto) Lymph # (Auto) [place] # (Auto) Eos # (Auto) Baso # (Auto) Abs Immat Gran (auto) Absolute Neuts (auto) Absolute Nucleated RBC Nucleated RBC % (auto) PT INR APTT D-Dimer Anion Gap Estim Creat Clear Calc Estimated GFR POC Glucose Random Glucose Lactic Acid 1.8 Calcium Magnesium Total Bilirubin Direct Bilirubin AST ALT Alkaline Phosphatase Total Creatine Kinase Troponin I High Sens 4.2 Total Protein Albumin TSH Urine Color YELLOW Urine Appearance TURBID Urine pH 6.0 Ur Specific [place] 1.025 Urine Protein 1+ H Urine Glucose (UA) >=1000 H Urine Ketones 40 Urine Blood 2+ H Urine Nitrite POS H Ur Leukocyte Esterase 2+ H Urine RBC 0-2 Urine WBC TNTC H Ur Squamous Epith Cells NONE Ur Renal Epithelial Cell TRACE Urine Bacteria 1+ Coronavirus (PCR) Influenza Type A (PCR) Influenza Type B (PCR) RSV RNA Qual (PCR) 04/04/21 04/04/21 04/05/21 19:36 21:26 06:13 MCV 92.5 MCH 29.6 MCHC 32.0 RDW 13.2 Plt Count 298 MPV 11.5 Immature Gran % (Auto) 0.5 H Neut % (Auto) 59.5 Lymph % (Auto) 22.9 Hend[place] % (Auto) 8.2 Eos % (Auto) 8.3 H Baso % (Auto) 0.6 Lymph # (Auto) 2.2 [place] # (Auto) 0.8 Eos # (Auto) 0.8 H Baso # (Auto) 0.1 Abs Immat Gran (auto) 0.05 H Absolute Neuts (auto) 5.6 Absolute Nucleated RBC 0.000 Nucleated RBC % (auto) 0.0 PT INR APTT D-Dimer Anion Gap Estim Creat Clear Calc Estimated GFR POC Glucose 361 H* Random Glucose Lactic Acid Calcium Magnesium Total Bilirubin Direct Bilirubin AST ALT Alkaline Phosphatase Total Creatine Kinase Troponin I High Sens Total Protein Albumin TSH Urine Color Urine Appearance Urine pH Ur Specific [place] Urine Protein Urine Glucose (UA) Urine Ketones Urine Blood Urine Nitrite Ur Leukocyte Esterase Urine RBC Urine WBC Ur Squamous Epith Cells Ur Renal Epithelial Cell Urine Bacteria Coronavirus (PCR) NEGATIVE Influenza Type A (PCR) NEGATIVE Influenza Type B (PCR) NEGATIVE RSV RNA Qual (PCR) NEGATIVE 04/05/21 04/05/21 04/05/21 06:13 06:13 06:13 MCV MCH MCHC RDW Plt Count MPV Immature Gran % (Auto) Neut % (Auto) Lymph % (Auto) [place] % (Auto) Eos % (Auto) Baso % (Auto) Lymph # (Auto) [place] # (Auto) Eos # (Auto) Baso # (Auto) Abs Immat Gran (auto) Absolute Neuts (auto) Absolute Nucleated RBC Nucleated RBC % (auto) PT 13.5 H INR 1.2 H APTT D-Dimer Anion Gap 14 Estim Creat Clear Calc 45.5 Estimated GFR 55 POC Glucose Random Glucose 257 H Lactic Acid Calcium 9.0 D Magnesium Total Bilirubin Direct Bilirubin AST ALT Alkaline Phosphatase Total Creatine Kinase Troponin I High Sens Total Protein Albumin TSH 6.04 H Cancelled Urine Color Urine Appearance Urine pH Ur Specific [place] Urine Protein Urine Glucose (UA) Urine Ketones Urine Blood Urine Nitrite Ur Leukocyte Esterase Urine RBC Urine WBC Ur Squamous Epith Cells Ur Renal Epithelial Cell Urine Bacteria Coronavirus (PCR) Influenza Type A (PCR) Influenza Type B (PCR) RSV RNA Qual (PCR) 04/05/21 07:22 MCV MCH MCHC RDW Plt Count MPV Immature Gran % (Auto) Neut % (Auto) Lymph % (Auto) [place] % (Auto) Eos % (Auto) Baso % (Auto) Lymph # (Auto) [place] # (Auto) Eos # (Auto) Baso # (Auto) Abs Immat Gran (auto) Absolute Neuts (auto) Absolute Nucleated RBC Nucleated RBC % (auto) PT INR APTT D-Dimer Anion Gap Estim Creat Clear Calc Estimated GFR POC Glucose 237 H Random Glucose Lactic Acid Calcium Magnesium Total Bilirubin Direct Bilirubin AST ALT Alkaline Phosphatase Total Creatine Kinase Troponin I High Sens Total Protein Albumin TSH Urine Color Urine Appearance Urine pH Ur Specific [place] Urine Protein Urine Glucose (UA) Urine Ketones Urine Blood Urine Nitrite Ur Leukocyte Esterase Urine RBC Urine WBC Ur Squamous Epith Cells Ur Renal Epithelial Cell Urine Bacteria Coronavirus (PCR) Influenza Type A (PCR) Influenza Type B (PCR) RSV RNA Qual (PCR) Microbiology Microbiology Results: Microbiology 04/04/21 Unknown Urine Culture - Preliminary Urine clean catch - Urine redding top Culture in progress. Assessment and Plan (1) Syncope: Status: Acute (2) Acute UTI: Status: Acute (3) Subtherapeutic international normalized ratio (INR): Status: Acute (4) Acute metabolic encephalopathy: Status: Acute Assessment and Plan: ? 80-year-old female with a past medical history of hypertension, hyperlipidemia, diabetes, history of DVT x 2, found down of unclear circumstance, covered with feces, and has UTI Syncope or fall, has no recollection, only stating that she was using bathrrom a lot, no bodilty injusy, ECG, and trop ok, Cervical spine, and head CT ok. 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 Continue ceftriaxone.? Follow up cultures. History of DVT x 2, INR low, CTA no PE, got Lovenox in ED yesterday, continue coumadin, goal of INR 2 to 3 Diabetes:? restart glipizie, SSI, diabetic diet DVT prophylaxis:? Patient on Coumadin Code status:? DNR/DNI. Spoke to pt's son Kapil ph-[phone]. Quality Stroke Does the patient have a stroke diagnosis?: No VTE Prior VTE?: No VTE Risk Level:: Medical - moderate - high VTE Device Contraindication: Treatment Not Indicated VTE Drug Contraindication: Treatment Not Indicated
[2021-04-05 12:15] LABS: Glucose, Whole Blood 277 mg/dL (60-115)
[2021-04-05 12:24] LABS: Free T4 (Free Thyroxine) 0.86 ng/dL (0.71-1.85)
[2021-04-05 16:42] LABS: Glucose, Whole Blood 214 mg/dL (60-115)
[2021-04-05] MEDS: Warfarin Sodium 5 MG TABLET PO (16:52)
[2021-04-05] MEDS: glipiZIDE 5 MG TABLET 2.5 MG PO (16:53)
[2021-04-05] MEDS: Acetaminophen 325 MG TABLET 650 MG PO ×2 (16:53→23:23)
[2021-04-05] MEDS: cefTRIAXone sodium 1 GM in 0.9 % Sodium Chloride 50 ML IV (18:45)
[2021-04-05 20:21] LABS: Glucose, Whole Blood 192 mg/dL (60-115)
[2021-04-06 03:17] VITALS: BP 152/80; PULSE 76; RESP 16; TEMP 36.4; O2SAT 96
[2021-04-06 07:42] VITALS: BP 162/78; PULSE 81; RESP 18; TEMP 36.4; O2SAT 97
[2021-04-06 07:57] LABS: Glucose, Whole Blood 228 mg/dL (60-115)
[2021-04-06 09:18] LABS: INTERNATIONAL NORM RATIO 1.1 (0.9-1.1); Prothrombin Time 12.6 SEC (9.9-13.0)
[2021-04-06] MEDS: Furosemide 20 MG TABLET PO (09:20)
[2021-04-06] MEDS: glipiZIDE 5 MG TABLET 2.5 MG PO ×2 (09:20→16:48)
[2021-04-06] MEDS: Insulin Lispro 100 UNIT/ML 3 ML VIAL SUBCUT ×3 (09:21→20:59)
[2021-04-06] MEDS: 0.9 % Sodium Chloride Flush 3 ML SYRINGE IVFLUSH ×3 (09:21→20:59)
--- NOTE | 2021-04-06 10:10 | HO.PM.IMPN ---
Subjective Subjective Date of Service: 04/06/21 Interval History: Seen in f/u UTI, possibl syncope, doing well, no event on tele, fully alert Review of Systems Gen: no fever Resp: no sob, no cough CV: no chest, no TRIMBLE, no leg edema GI: No n/v, no abd pain Neuro: No confusion Physical Exam Vital Signs: Vital Signs: Last Vital Signs Temp 97.6 F 04/06/21 07:42 Pulse 81 04/06/21 07:42 Resp 18 04/06/21 07:42 BP 162/78 H 04/06/21 07:42 Pulse Ox 97 04/06/21 07:42 Body Mass Index 33.5 Const: Other: General: AO X 3, no acute distress Resp: CTA bilateral CVS: S1,S2,RRR GI: +BS, NT, no distention Skin: No rash Neuro: motor grossly intact Psych: appropriate affect Objective Data Current Medications Generic Name Dose Route Start Last Admin Trade Name Freq PRN Reason Stop Dose Admin Acetaminophen 650 mg 04/04/21 20:48 04/05/21 23:23 Acetaminophen 325 Mg Tablet PO 650 mg Q6H PRN Administration Pain, Mild (Pain Scale 1-3) Furosemide 20 mg 04/06/21 09:00 04/06/21 09:20 Furosemide 20 Mg Tablet PO 20 mg DAILY TRACY Administration Protocol Glipizide 2.5 mg 04/05/21 17:00 04/06/21 09:20 Glipizide 5 Mg Tablet PO 2.5 mg BIDWM TRACY Administration Glucose 15 gm 04/04/21 20:48 Glucose Gel 15 Gm Gel..Gram. PO Q15M PRN per Hypoglycemia Standing Ord. Protocol Ceftriaxone Sodium 1 gm/ 50 mls @ 100 mls/hr 04/05/21 19:00 04/05/21 19:24 Sodium Chloride IV Infused Q24H TRACY Infusion Insulin Human Lispro 0 unit 04/04/21 21:00 04/06/21 09:21 Insulin Lispro 100 Unit/Ml 3 Ml Vial SUBCUT 4 unit QIDACHS TRACY Administration Protocol Melatonin 6 mg 04/04/21 20:48 Melatonin 3 Mg Tablet PO BEDTIME PRN Insomnia Pharmacy Consult 1 each 04/04/21 12:07 Consult Rx Perform Med Rec MISCELLANE ONCE PRN Consult order Senna 17.2 mg 04/04/21 20:48 Sennosides 8.6 Mg Tablet PO BEDTIME PRN Constipation Sodium Chloride 3 ml 04/05/21 00:00 04/06/21 09:21 0.9 % Sodium Chloride Flush 3 Ml Syringe IVFLUSH 3 ml QSHIFT [facility] Administration Warfarin Sodium 5 mg 04/05/21 18:00 04/05/21 16:52 Warfarin Sodium 5 Mg Tablet PO 5 mg DAILY@1800 [facility] Administration Labs CBC & Chem 7: 04/05/21 06:13 04/05/21 06:13 Labs: Laboratory Results - last 24 hr 04/05/21 04/05/21 04/05/21 06:13 11:53 16:32 PT INR POC Glucose 277 H 214 H Free T4 0.86 04/05/21 04/06/21 04/06/21 20:03 07:41 08:51 PT 12.6 INR 1.1 POC Glucose 192 H 228 H Free T4 Microbiology Microbiology Results: Microbiology 04/04/21 Unknown Urine Culture - Final Urine clean catch - Urine redding top 04/04/21 17:56 Blood Culture - Preliminary Blood - Venous No growth after 24 hours. 04/04/21 17:57 Blood Culture - Preliminary Blood - Venous No growth after 24 hours. Assessment and Plan (1) Syncope: Status: Acute (2) Acute UTI: Status: Acute (3) Subtherapeutic international normalized ratio (INR): Status: Acute (4) Acute metabolic encephalopathy: Status: Acute Assessment and Plan: ? 80-year-old female with a past medical history of hypertension, hyperlipidemia, diabetes, history of DVT x 2, found down of unclear circumstance, covered with feces, and has UTI Syncope or fall, has no recollection, only stating that she was using bathrrom a lot, no bodilty injusy, ECG, and trop ok, Cervical spine, and head CT ok. Probable d/t UTI -PT eval, equipment monitor phototypesetting, orthostatic unremarkable. likely from UTI Metabolic encephalopathy likely from UTI, she is now at baseline, continue treatment of underlying uti, she is back to baseline UTI:? Continue ceftriaxone, for Klebsiel History of DVT x 2, INR low, CTA no PE, got Lovenox in ED yesterday, continue coumadin, goal of INR 2 to 3 Diabetes: continue glipizide, increase to 5 bid, SSI, diabetic diet DVT prophylaxis:? Patient on Coumadin, add heparin given subtherapetutic INR Code status:? DNR/DNI. Spoke to pt's son Kapil ph-[phone]. Quality Stroke Does the patient have a stroke diagnosis?: No VTE Prior VTE?: No VTE Risk Level:: Medical - moderate - high VTE Device Contraindication: Treatment Not Indicated VTE Drug Contraindication: Treatment Not Indicated
[2021-04-06 10:32] LABS: Hematocrit 37.6 % (37-47); Hemoglobin 12.3 g/dl (12.0-16.0); Mean Corpuscular HGB Conc 32.7 g/dl (31.0-35.0); Mean Corpuscular Hemoglobin 30.1 pg (27.0-33.0); Mean Corpuscular Volume 92.2 fL (80-98); Mean Platelet Volume 11.6 fL (9.4-12.3); Platelet Count 285 X10*3/uL (160-400); Red Blood Count 4.08 X10*6/uL (4.20-5.50); Red Cell Distribution Width 13.2 % (11.0-16.0); White Blood Count 8.6 X10*3/uL (4.8-10.8)
[2021-04-06 12:00] VITALS: BP 150/80; PULSE 80; RESP 18; TEMP 36.2; O2SAT 97
[2021-04-06 12:00] LABS: Glucose, Whole Blood 281 mg/dL (60-115)
[2021-04-06 15:18] VITALS: BP 130/70; PULSE 79; RESP 18; TEMP 36.8; O2SAT 98
[2021-04-06 16:14] LABS: Glucose, Whole Blood 143 mg/dL (60-115)
[2021-04-06] MEDS: Warfarin Sodium 5 MG TABLET PO (16:48)
[2021-04-06] MEDS: cefTRIAXone sodium 1 GM in 0.9 % Sodium Chloride 50 ML IV (17:50)
[2021-04-06 19:12] VITALS: BP 128/65; PULSE 78; RESP 18; TEMP 36.4; O2SAT 97
[2021-04-06 20:42] LABS: Glucose, Whole Blood 224 mg/dL (60-115)
[2021-04-06 23:41] VITALS: BP 110/62; PULSE 79; RESP 16; TEMP 36.6; O2SAT 96
[2021-04-06] MEDS: Melatonin 3 MG TABLET 6 MG PO (23:57)
[2021-04-07] VITALS (7 sets, daily range): BP systolic 140–174; BP diastolic 64–75; PULSE 64–77; RESP 16–18; TEMP 36.1–36.6; O2SAT 94–98
[2021-04-07 04:24] LABS: Folate 6.8 ng/mL (> or = 4.0); Vitamin B12 675 pg/mL (200-900)
--- NOTE | 2021-04-07 07:30 | CA_ITS ---
Transthoracic Echocardiogram Patient (Last, First, Middle): Allison Chau, Gender: Female Date of : 1940 Age: 80 Procedure Date: 04/07/2021 Procedure Type: Transthoracic Echocardiogram Location: S3W Height: 154.94 cm Weight: 80.29 kg BSA: 1.79 m2 Heart Rate: bpm BP: 140 / 70 mmHg Comic Artist: NADIA Charles MD: Milo Deleon MD Manager Of Quality: Yusef Jain MD Symptoms: syncope Study Quality: Technically Difficult/Contrast ECG Rhythm: Sinus Conclusions: - 1. Technically difficult study 2. Normal LV systolic function with impaired relaxation filling pattern 3. Normal cardiac valvular Doppler 4. Normal RV systolic pressure 5. No gross pericardial effusion Findings Procedure Information Contrast agent, definity, is being given per protocol without apparent complications. Left Ventricle Normal left ventricular size, thickness, and systolic function. The visually estimated ejection fraction is between 60-65%. Spectral Doppler is indicative of an impaired relaxation filling pattern. E/E prime ratio is between 8 and 15 consistent with indeterminate filling pressures. Right Ventricle The right ventricle was not well visualized. Atria The left atrium is normal in size. Interatrial shunt cannot be excluded. The right atrium was not well visualized. Aortic Valve The aortic valve was not well visualized. There is no aortic valve stenosis. There is no aortic valve regurgitation. Mitral Valve Likely normal mitral valve structure and function. There is trace mitral valve regurgitation. There is no mitral valve stenosis. Pulmonic Valve The pulmonic valve was not well visualized. Tricuspid Valve Likely normal tricuspid valve structure and function. There is trace tricuspid valve regurgitation. The right ventricular systolic pressure is normal. The right ventricular systolic pressure is 13 mmHg. Normal right atrial pressure. There is no evidence of pulmonary hypertension. Great Vessels The aorta was not well visualized. The pulmonary artery was not well visualized. Venous The inferior vena cava is normal in size and collapses greater than 50% with inspiration. Pericardium/Pleural There is no evidence of pericardial effusion. Prior Study Comparison No prior study available for comparison. Measurements 2D Linear Measurements IVSd: 0.83 0.6-0.9/0.6-1.0 cm LVIDd: 4.07 3.9-5.3/4.2-5.9 cm LVIDd Index: 2.27 2.4-3.2/2.2-3.1 cm/m2 LVIDs: 2.39 2.0-3.6 cm LVPWd: 0.80 0.7-1.1 cm Ao Root: 2.60 2.1-3.5 cm LA Diam: 3.30 2.7-3.8/3.0-4.0 cm LAIDs Index: 1.84 1.5-2.3 cm/m2 LV Mass: 122.59 67-162/88-224 g LV Mass Index: 68.48 43-95/49-115 g/m2 LVOT Diam: 1.80 3.0+(-)1.3 cm Mitral Valve MV Pk E: 0.78 MV PK A: 0.77 MV Decel Time: 222.00 E/A: 1.00 E'Lateral: 8.05 E'Medial: 9.14 E/E' Med: 8.50 E/E' Lat: 9.70 PHT: 65.00 MVA PHT: 3.38 Decel Terrell: 3.50 Aortic Valve AoV Pk Teofilo: 1.26 AoV Mn Teofilo: 0.91 AoV VTI: 0.25 AoV Pk Grad: 6.00 Aov Mn Grad: 4.00 JOHN PAUL Cont.VTI: 2.01 LVOT LVOT Pk Teofilo: 1.04 LVOT Mn Teofilo: 0.71 LVOT VTI: 0.20 LVOT Pk Grad: 4.00 LVOT Mn Grad: 2.00 LVOT Diam: 1.80 LVOT Area: 2.54 Diastolic Function MV Pk E: 0.78 MV Pk A: 0.77 E/A: 1.00 E'Medial: 9.14 E/E' Med: 8.50 E' Laterial: 8.05 E/E' Lat: 9.70 Right Ventricle TAPSE (mm): 1.65 Tricuspid Valve TR Pk Teofilo: 1.55 TR Pk Grad: 10.00 RA Press: 3.00 RVSP: 13.00 Great Vessels Aorta Ao Root-2D: 2.60 2.0-3.7 cm Ao Asc: 3.10 2.1-3.4 cm Ao Arch: 2.50 Updated in Other Vendor System with Status of Final Yusef Jain MD electronically signed on 04/07/2021 5:12:54 PM with status of Final
[2021-04-07 08:11] LABS: INTERNATIONAL NORM RATIO 1.4 (0.9-1.1); Prothrombin Time 15.7 SEC (9.9-13.0)
[2021-04-07 08:16] LABS: Glucose, Whole Blood 206 mg/dL (60-115)
[2021-04-07] MEDS: Insulin Lispro 100 UNIT/ML 3 ML VIAL SUBCUT ×4 (08:17→19:46)
[2021-04-07] MEDS: 0.9 % Sodium Chloride Flush 3 ML SYRINGE IVFLUSH ×3 (08:17→19:46)
[2021-04-07] MEDS: glipiZIDE 5 MG TABLET 2.5 MG PO ×2 (08:18→16:57)
[2021-04-07] MEDS: Furosemide 20 MG TABLET PO (08:18)
--- NOTE | 2021-04-07 09:45 | P.PNIM_ITS ---
Subjective Subjective Date of Service: 04/07/21 Interval History: Seen in f/u UTI, possibl syncope, doing well, no event on tele, overall feels toña Review of Systems Gen: no fever Resp: no sob, no cough CV: no chest, no TRIMBLE, no leg edema GI: No n/v, no abd pain Neuro: No confusion Physical Exam Vital Signs: Vital Signs: Last Vital Signs Temp 97.4 F 04/07/21 08:00 Pulse 77 04/07/21 08:00 Resp 18 04/07/21 08:00 BP 195/73 H 04/07/21 08:00 Pulse Ox 94 04/07/21 08:00 Body Mass Index 33.5 Const: Other: General: AO X 3, no acute distress Resp: CTA bilateral CVS: S1,S2,RRR GI: +BS, NT, no distention Skin: No rash Neuro: motor grossly intact Psych: appropriate affect Objective Data Current Medications Generic Name Dose Route Start Last Admin Trade Name Freq PRN Reason Stop Dose Admin Acetaminophen 650 mg 04/04/21 20:48 04/05/21 23:23 Acetaminophen 325 Mg Tablet PO 650 mg Q6H PRN Administration Pain, Mild (Pain Scale 1-3) Benzocaine 1 lozenge 04/07/21 08:47 Throat Lozenge, Medicated Lozenge MUCOUS MEM Q2H PRN Sore Throat Furosemide 20 mg 04/06/21 09:00 04/07/21 08:18 Furosemide 20 Mg Tablet PO 20 mg DAILY TRACY Administration Protocol Glipizide 2.5 mg 04/05/21 17:00 04/07/21 08:18 Glipizide 5 Mg Tablet PO 2.5 mg BIDWM TRACY Administration Glucose 15 gm 04/04/21 20:48 Glucose Gel 15 Gm Gel..Gram. PO Q15M PRN per Hypoglycemia Standing Ord. Protocol Ceftriaxone Sodium 1 gm/ 50 mls @ 100 mls/hr 04/05/21 19:00 04/06/21 18:40 Sodium Chloride IV Infused Q24H TRACY Infusion Insulin Human Lispro 0 unit 04/04/21 21:00 04/07/21 08:17 Insulin Lispro 100 Unit/Ml 3 Ml Vial SUBCUT 4 unit QIDACHS TRACY Administration Protocol Melatonin 6 mg 04/04/21 20:48 04/06/21 23:57 Melatonin 3 Mg Tablet PO 6 mg BEDTIME PRN Administration Insomnia Pharmacy Consult 1 each 04/04/21 12:07 Consult Rx Perform Med Rec MISCELLANE ONCE PRN Consult order Senna 17.2 mg 04/04/21 20:48 Sennosides 8.6 Mg Tablet PO BEDTIME PRN Constipation Sodium Chloride 3 ml 04/05/21 00:00 04/07/21 08:17 0.9 % Sodium Chloride Flush 3 Ml Syringe IVFLUSH 3 ml QSHIFT [facility] Administration Warfarin Sodium 5 mg 04/05/21 18:00 04/06/21 16:48 Warfarin Sodium 5 Mg Tablet PO 5 mg DAILY@1800 [facility] Administration Labs CBC & Chem 7: 04/06/21 08:51 04/05/21 06:13 Labs: Laboratory Results - last 24 hr 04/05/21 04/06/21 04/06/21 06:13 08:51 11:47 MCV 92.2 MCH 30.1 MCHC 32.7 RDW 13.2 Plt Count 285 MPV 11.6 Absolute Nucleated RBC 0.000 Nucleated RBC % (auto) 0.0 PT INR POC Glucose 281 H Vitamin B12 675 Folate 6.8 04/06/21 04/06/21 04/07/21 16:05 20:36 07:38 MCV MCH MCHC RDW Plt Count MPV Absolute Nucleated RBC Nucleated RBC % (auto) PT 15.7 H D INR 1.4 H POC Glucose 143 H 224 H Vitamin B12 Folate 04/07/21 08:13 MCV MCH MCHC RDW Plt Count MPV Absolute Nucleated RBC Nucleated RBC % (auto) PT INR POC Glucose 206 H Vitamin B12 Folate Microbiology Microbiology Results: Microbiology 04/04/21 17:56 Blood Culture - Preliminary Blood - Venous No growth after 48 hours. 04/04/21 17:57 Blood Culture - Preliminary Blood - Venous No growth after 48 hours. 04/04/21 Unknown Urine Culture - Final Urine clean catch - Urine redding top Assessment and Plan (1) Syncope: Status: Acute (2) Acute UTI: Status: Acute (3) Subtherapeutic international normalized ratio (INR): Status: Acute Assessment and Plan: ? 80-year-old female with a past medical history of hypertension, hyperlipidemia, diabetes, history of DVT x 2, found down of unclear circumstance, covered with feces, and has UTI Syncope or fall, has no recollection, only stating that she was using bathrrom a lot, no bodilty injusy,? ECG, and trop ok, Cervical spine, and head CT ok. 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 likely from UTI Metabolic encephalopathy likely from UTI, she is now at baseline, continue treatment of underlying uti, she is back to baseline UTI:? Continue ceftriaxone, for Klebsiel, change to Ceftin History of DVT x 2, INR low, CTA no PE,? got Lovenox in ED yesterday, continue coumadin, goal of INR 2 to 3 Diabetes: continue glipizide, increase to 5 bid,? SSI, diabetic diet Elevated BP, most BPs have been normal, recheck and if still high then start Norvasc DVT prophylaxis:? Patient on Coumadin, add heparin given subtherapetutic INR Code status:? DNR/DNI. Spoke to pt's son Kapil ph-[phone]. PT recommends STR Quality Stroke Does the patient have a stroke diagnosis?: No VTE Prior VTE?: No VTE Risk Level:: Medical - moderate - high VTE Device Contraindication: Treatment Not Indicated VTE Drug Contraindication: Treatment Not Indicated
[2021-04-07 11:45] LABS: Glucose, Whole Blood 254 mg/dL (60-115)
--- NOTE | 2021-04-07 12:48 | MHC.CM.PN ---
PATIENT IS AGREEABLE TO SHORT TERM REHAB. SHE WOULD LIKE TO REFER IN [place]; REFERRALS PLACED TO [facility] AND [facility]. NEITHER ARE CONTRACTED WITH PATIENT'S INSURANCE. PATINT AGREEABLE TO [facility] AND [facility] REFERRALS, NOW PLACED. [facility] OFFERING A PRIVATE ROOM. PATIENT ACCEPTS THIS BED OFFER. FACILITY ATTEMPTING AUTH. RN, HOSPITALIST, AND PATIENT AWARE. PATIENT COMPLETED HCP, ASSIGNING HER [id number] SOLE AGENT. COPY UPLOADED TO [employer]. PATIENT HAS BOTH ORIGINAL AND COPY.
[2021-04-07 14:44] LABS: Influenza A PCR NEGATIVE (Negative); Influenza B PCR NEGATIVE (Negative); Resp Syncy Virus RNA Qual PCR NEGATIVE (Negative); SARS COV2 PCR INHOUSE NEGATIVE (Negative)
[2021-04-07 16:43] LABS: Glucose, Whole Blood 151 mg/dL (60-115)
[2021-04-07] MEDS: Warfarin Sodium 5 MG TABLET PO (16:57)
[2021-04-07] MEDS: Throat Lozenge, Medicated LOZENGE 1 LOZENGE MUCOUS MEM (17:01)
[2021-04-07] MEDS: cefTRIAXone sodium 1 GM in 0.9 % Sodium Chloride 50 ML IV (18:33)
[2021-04-07 20:00] LABS: Glucose, Whole Blood 237 mg/dL (60-115)
[2021-04-08 07:02] LABS: INTERNATIONAL NORM RATIO 1.6 (0.9-1.1); Prothrombin Time 17.8 SEC (9.9-13.0)
[2021-04-08 07:38] VITALS: BP 150/78; PULSE 85; RESP 18; TEMP 36.7; O2SAT 96
[2021-04-08 07:58] LABS: Glucose, Whole Blood 205 mg/dL (60-115)
[2021-04-08] MEDS: Insulin Lispro 100 UNIT/ML 3 ML VIAL SUBCUT ×2 (08:04→11:46)
[2021-04-08] MEDS: Furosemide 20 MG TABLET PO (08:04)
[2021-04-08] MEDS: glipiZIDE 5 MG TABLET 2.5 MG PO (08:04)
[2021-04-08] MEDS: 0.9 % Sodium Chloride Flush 3 ML SYRINGE IVFLUSH (08:04)
--- NOTE | 2021-04-08 10:21 | PM.DS ---
DS: Providers Provider Date of Service: 04/08/21 Date of admission: 04/04/21 20:51 Primary care physician: Fortino Partida MD DS: Diagnosis Discharge Diagnosis (1) Syncope: Status: Resolved (2) Acute UTI: Status: Acute (3) Subtherapeutic international normalized ratio (INR): Status: Acute DS: Summary Hospital Course Hospital Course: 10-year-old female with a past medical history of hypertension, hyperlipidemia, diabetes, history of UTIs, history of falls, history of DVT on Coumadin presented to the hospital with a chief complaint of unwitnessed fall. Patient was found by her cleaning lady this morning in the house; patient was noted be having covered in stool and urine. Patient unable to recall the events.? Currently patient denies any chest pain palpitations lightheadedness or dizziness. Mentions that she takes her medications fairly okay the system intermittently; denies any fever chills. Patient is alert and oriented x3 at the time of my interview. Denies any nausea vomiting or diarrhea. Review of all other systems is negative except mentioned above ER course: E ER team mentioned the patient's exam was nonfocal, CT head and CT C-spine showed no acute findings; CT chest showed no evidence of pulmonary embolism; INR is subtherapeutic-given a dose of Lovenox; no evidence of pneumonia; urinalysis was abnormal consistent with UTI; given antibiotics.? Admitted to for further management. Hospital course: Syncope or fall, has no recollection, only stating that she was using bathrrom a lot, no bodily injusy,? ECG, and trop ok, Cervical spine, and head CT ok. Monitoer on cardiac telemetry with no arrythmia. Orthostatic BP unremarkable, She has not had such episode in the hospital. PT is recommending short term rehab Metabolic encephalopathy likely from UTI, she is now at baseline, continue treatment of underlying uti, she is back to baseline UTI:? Continue ceftriaxone for Klebsiel, change to Ceftin at discharge for total of 7 days History of DVT x 2, INR low, CTA no PE,? got Lovenox in ED yesterday, continue coumadin, goal of INR 2 to 3, INR is 1.6 today, adjusting to 6 mg today, usually take 4 Diabetes: To continue glipizide Elevated BP/HTN, not on BP meds, started on Norvasc 2.5 mg daily and maybe adjusted for optimal blood pressure control To short term rehab likely for less than 30 days Time Spent with Patient Time attestation: Total time spent providing and/or coordinating discharge services: Discharge coordination time: Greater than 30 minutes Quality: Stroke Does the patient have a stroke diagnosis?: No Physical Exam Vital Signs: Vital Signs: Last Vital Signs Temp 98.0 F 04/08/21 07:38 Pulse 85 04/08/21 07:38 Resp 18 04/08/21 07:38 BP 150/78 H 04/08/21 07:38 Pulse Ox 96 04/08/21 07:38 Body Mass Index 33.5 DS: Data Data Completed and Pending Labs on day of discharge: Laboratory Results - last 24 hr 04/07/21 04/07/21 04/07/21 11:41 13:30 16:38 PT INR POC Glucose 254 H 151 H Coronavirus (PCR) NEGATIVE Influenza Type A (PCR) NEGATIVE Influenza Type B (PCR) NEGATIVE RSV RNA Qual (PCR) NEGATIVE 04/07/21 04/08/21 04/08/21 19:29 06:05 07:34 PT 17.8 H INR 1.6 H POC Glucose 237 H 205 H Coronavirus (PCR) Influenza Type A (PCR) Influenza Type B (PCR) RSV RNA Qual (PCR) Preliminary micro results at discharge 04/04/21 17:56 Blood Culture - Preliminary Blood - Venous No growth after 48 hours. 04/04/21 17:57 Blood Culture - Preliminary Blood - Venous No growth after 48 hours. Discharge Plan Discharge Anticipated Discharge Date/Time: 04/08/21 10:17 Patient Disposition: Xfer SNF Discharge Diagnosis: Syncope, UTI, Referrals: Fortino Partida MD [Primary Care Provider] - 1 Week Discharge Medications: New amlodipine [Norvasc] 2.5 mg tablet 2.5 mg PO DAILY Qty: 30 RF: 0 cefuroxime axetil 250 mg tablet 250 mg PO BID Qty: 8 RF: 0 Continued warfarin 4 mg tablet 1 tab PO DAILY RF: 0 furosemide 20 mg tablet 1 tab PO DAILY RF: 0 glipizide 5 mg tablet 1 tab PO BID RF: 0 Discharge Orders: Discharge Order (Routine); Ordered 04/08/21 Ordered By: Mack Serrano Diet: advance to usual diet Activity on Discharge: As tolerated Stand Alone Forms: Patient Portal Discharge page Care Plan Goals: prevent rehospitalization Health Concerns: sycnope, UIT, Plan of Treatment: Take Ceftin for UTI Short term rehab Assessment: As above Discharge Date/Time: 04/08/21 13:16
[2021-04-08 11:17] VITALS: BP 150/78; PULSE 85
[2021-04-08] MEDS: amLODIPine Besylate 2.5 MG TABLET PO (11:17)
[2021-04-08 11:20] LABS: IDNOW Serial# 9DD0AD1C; Strep A Nucleic Acid Negative (Negative)
--- NOTE | 2021-04-08 11:27 | MHC.CM.PN ---
Addendum entered by Jeana Street 04/08/21 11:48: PER CONVERSATION WITH [facility], TIME CHANGED TO A 1300 [employer] WITH [facility]. PATIENT, HCP (IN ROOM), UNIT, AND RN AWARE AND IN AGREEMENT WITH CHANGE Original Note: PATIENT TO TRANSFER TO [facility] TODAY VIA [facility] FOR 1330. RN, UNIT, PATIENT, AND HCP AWARE OF PLAN. IMM 04/07 IN CHART.
[2021-04-08 12:00] VITALS: BP 149/75; PULSE 73; RESP 18; TEMP 36.6; O2SAT 97
[2021-04-08 12:08] LABS: Glucose, Whole Blood 251 mg/dL (60-115)
== END 2021-04-08 13:16 | disposition skilled nursing facility (03) | DRG 689 ==
LOC: HO.ED 17:24 → HO.EDOVER 21:02 → HO.IMC 21:09 → HO.S3 21:33
PROVIDERS: Physician Assistant; Admitting Provider Hospitalist; Emergency Provider Emergency Medicine Emergency Medical Services; PCP Internal Medicine; Visit Provider Internal Medicine
DX: N39.0 Urinary tract infection, site not specified (principal); G93.41 Metabolic encephalopathy; E11.9 Type 2 diabetes mellitus without complications; I10 Essential (primary) hypertension; R79.1 Abnormal coagulation profile; Z86.718 Personal history of other venous thrombosis and embolism; Z20.822 Contact with and (suspected) exposure to COVID-19; Z88.0 Allergy status to penicillin; Z79.01 Long term (current) use of anticoagulants; Z79.899 Other long term (current) drug therapy
CPT/HCPCS: 0241U; 36415; 70450; 71275; 72125; 80048; 80076; 81001; 82550; 82607; 82746; 82947; 83605; 83735; 84439; 84443; 84484; 85025; 85027; 85379; 85610; 85730; 87040; 87086; 87651; 93005; 93306; 96361; 96365; 96372; 97162; 99285; J0696; J1650; Q9957; Q9967

== ENCOUNTER 2021-04-09 06:58 | Outpatient (REF) | payer MEDICARE, SELFPAY ==
[2021-04-09 07:24] LABS: MANUAL DIFF FLAG NO
[2021-04-09 07:27] LABS: Basophils Absolute Auto 0.1 X10*3/uL (0.0-0.2); Eosinophils Absolute Auto 0.7 X10*3/uL (0.0-0.4); Hematocrit 37.9 % (37-47); Hemoglobin 12.2 g/dl (12.0-16.0); Imm Gran Abs Auto 0.22 X10*3/uL (0.00-0.03); Imm Gran Pct Auto 2.7 % (0.0-0.4); Lymphocytes Absolute Auto 2.3 X10*3/uL (1.2-4.9); Lymphocytes Percent Auto 28.1 % (20-40); Mean Corpuscular HGB Conc 32.2 g/dl (31.0-35.0); Mean Corpuscular Hemoglobin 29.6 pg (27.0-33.0); Mean Platelet Volume 10.9 fL (9.4-12.3); Monocytes Absolute Auto 0.7 X10*3/uL (0.1-1.2); Monocytes Percent Auto 8.6 % (2-11); Neutrophils Absolute Auto 4.2 X10*3/uL (2.0-8.3); Neutrophils Percent Auto 51.6 % (45-73); Platelet Count 302 X10*3/uL (160-400); Red Blood Count 4.12 X10*6/uL (4.20-5.50); Red Cell Distribution Width 13.1 % (11.0-16.0); White Blood Count 8.1 X10*3/uL (4.8-10.8)
[2021-04-09 07:41] LABS: INTERNATIONAL NORM RATIO 1.9 (0.9-1.1); Prothrombin Time 22.4 SEC (9.9-13.0)
[2021-04-09 07:58] LABS: Alanine Aminotransferase 19 U/L (0-31); Albumin Level 3.1 g/dL (3.5-5.0); Alkaline Phosphatase 60 U/L (39-117); Anion Gap 11 (12-20); Aspartate Amino Transferase 13 U/L (5-31); Bilirubin Direct 0.2 mg/dL (0.0-0.5); Bilirubin Total 0.3 mg/dL (0.0-1.0); Blood Urea Nitrogen 14 mg/dL (9-16); Calcium 8.5 mg/dL (8.4-10.2); Carbon Dioxide 28 mmol/L (22-29); Chloride 104 mmol/L (96-108); Estimated Glomerular Filt Rate > 60; Glucose Random 208 mg/dL (60-115); Potassium 3.5 mmol/L (3.3-5.1); Sodium 139 mmol/L (135-145); Total Protein 5.5 g/dL (6.5-8.0)
== END 2021-04-09 06:59 | disposition home or self-care (01) ==
LOC: HO.MMNH2L 06:58
PROVIDERS: Visit Provider Family Medicine
DX: I82.409 Acute embolism and thrombosis of unspecified deep veins of unspecified lower extremity (principal); I10 Essential (primary) hypertension; Z02.2 Encounter for examination for admission to residential institution
CPT/HCPCS: 36415; 80053; 80076; 82248; 85025; 85610

== ENCOUNTER 2021-04-14 00:34 | Outpatient (REF) | payer MEDICARE, SELFPAY ==
[2021-04-14 06:47] LABS: Hematocrit 39.2 % (37-47); Hemoglobin 12.4 g/dl (12.0-16.0); Mean Corpuscular HGB Conc 31.6 g/dl (31.0-35.0); Mean Corpuscular Hemoglobin 29.7 pg (27.0-33.0); Mean Corpuscular Volume 93.8 fL (80-98); Mean Platelet Volume 11.3 fL (9.4-12.3); Platelet Count 275 X10*3/uL (160-400); Red Blood Count 4.18 X10*6/uL (4.20-5.50); Red Cell Distribution Width 13.6 % (11.0-16.0)
[2021-04-14 07:04] LABS: INTERNATIONAL NORM RATIO 2.8 (0.9-1.1); Prothrombin Time 32.5 SEC (9.9-13.0)
[2021-04-14 07:06] LABS: Alanine Aminotransferase 14 U/L (0-31); Albumin Level 3.3 g/dL (3.5-5.0); Alkaline Phosphatase 59 U/L (39-117); Anion Gap 14 (12-20); Aspartate Amino Transferase 11 U/L (5-31); Bilirubin Total 0.5 mg/dL (0.0-1.0); Blood Urea Nitrogen 13 mg/dL (9-16); Calcium 8.5 mg/dL (8.4-10.2); Carbon Dioxide 26 mmol/L (22-29); Chloride 105 mmol/L (96-108); Estimated Glomerular Filt Rate 52; Glucose Random 210 mg/dL (60-115); Sodium 141 mmol/L (135-145); Total Protein 5.7 g/dL (6.5-8.0)
[2021-04-14 07:26] LABS: Thyroid Stimulating Hormone 38.43 uIU/mL (0.32-4.0)
[2021-04-14 14:53] LABS: Free T4 (Free Thyroxine) 0.52 ng/dL (0.71-1.85)
== END 2021-04-14 00:35 | disposition home or self-care (01) ==
LOC: HO.MMNH2L 00:34
PROVIDERS: Visit Provider Family Medicine
DX: N39.0 Urinary tract infection, site not specified (principal); E11.9 Type 2 diabetes mellitus without complications; I10 Essential (primary) hypertension
CPT/HCPCS: 36415; 80053; 84439; 84443; 85027; 85610

== ENCOUNTER 2021-04-16 06:38 | Outpatient (REF) | payer MEDICARE, SELFPAY ==
[2021-04-16 07:09] LABS: INTERNATIONAL NORM RATIO 3.2 (0.9-1.1); Prothrombin Time 37.2 SEC (9.9-13.0)
== END 2021-04-16 06:39 | disposition home or self-care (01) ==
LOC: HO.MMNH2L 06:38
PROVIDERS: Visit Provider Family Medicine
DX: I48.91 Unspecified atrial fibrillation (principal)
CPT/HCPCS: 36415; 85610

== ENCOUNTER 2021-04-21 06:34 | Outpatient (REF) | payer MEDICARE, SELFPAY ==
[2021-04-21 06:53] LABS: MANUAL DIFF FLAG NO
[2021-04-21 07:08] LABS: Basophils Absolute Auto 0.1 X10*3/uL (0.0-0.2); Basophils Percent Auto 0.9 % (0-2); Eosinophils Absolute Auto 0.6 X10*3/uL (0.0-0.4); Eosinophils Percent Auto 7.1 % (0-4); Hemoglobin 12.3 g/dl (12.0-16.0); Imm Gran Abs Auto 0.03 X10*3/uL (0.00-0.03); Imm Gran Pct Auto 0.3 % (0.0-0.4); Lymphocytes Absolute Auto 2.7 X10*3/uL (1.2-4.9); Lymphocytes Percent Auto 31.2 % (20-40); Mean Corpuscular HGB Conc 30.8 g/dl (31.0-35.0); Mean Corpuscular Hemoglobin 29.1 pg (27.0-33.0); Mean Corpuscular Volume 94.8 fL (80-98); Monocytes Absolute Auto 0.7 X10*3/uL (0.1-1.2); Neutrophils Absolute Auto 4.5 X10*3/uL (2.0-8.3); Neutrophils Percent Auto 52.5 % (45-73); Platelet Count 275 X10*3/uL (160-400); Red Blood Count 4.22 X10*6/uL (4.20-5.50); Red Cell Distribution Width 13.7 % (11.0-16.0); White Blood Count 8.6 X10*3/uL (4.8-10.8)
[2021-04-21 07:16] LABS: INTERNATIONAL NORM RATIO 2.6 (0.9-1.1)
[2021-04-21 07:33] LABS: Anion Gap 13 (12-20); Blood Urea Nitrogen 13 mg/dL (9-16); Calcium 8.8 mg/dL (8.4-10.2); Carbon Dioxide 28 mmol/L (22-29); Chloride 103 mmol/L (96-108); Estimated Glomerular Filt Rate 53; Glucose Random 232 mg/dL (60-115); Potassium 4.1 mmol/L (3.3-5.1); Sodium 140 mmol/L (135-145)
== END 2021-04-21 06:35 | disposition home or self-care (01) ==
LOC: HO.MMNH2L 06:34
PROVIDERS: Visit Provider Family Medicine
DX: I10 Essential (primary) hypertension (principal); Z86.718 Personal history of other venous thrombosis and embolism
CPT/HCPCS: 36415; 80048; 85025; 85610

== ENCOUNTER 2021-04-28 01:02 | Outpatient (REF) | payer MEDICARE, SELFPAY | END 2021-04-28 01:03 | disposition home or self-care (01) | LOC: HO.MMNH2L 01:02 | PROVIDERS: Visit Provider Family Medicine | DX: Z13.89 Encounter for screening for other disorder (principal) ==

== ENCOUNTER 2021-05-06 21:11 | Outpatient (REF) | payer MEDICARE, SELFPAY | END 2021-05-06 21:12 | disposition home or self-care (01) | LOC: HO.MMNH2L 21:11 | PROVIDERS: Visit Provider Family Medicine | DX: Z13.89 Encounter for screening for other disorder (principal) ==

== ENCOUNTER 2021-05-12 10:31 | Outpatient (REF) | payer MEDICARE, SELFPAY ==
[2021-05-12 12:14] LABS: T4 Thyroxine 3.2 ug/dL (4.5-12.0)
[2021-05-12 12:47] LABS: Thyroid Stimulating Hormone 78.41 uIU/mL (0.32-4.0)
== END 2021-05-12 10:32 | disposition home or self-care (01) ==
LOC: HO.HMGCLNP 10:31
PROVIDERS: Visit Provider Physician Assistant Medical
DX: E03.9 Hypothyroidism, unspecified (principal); I10 Essential (primary) hypertension; Z86.718 Personal history of other venous thrombosis and embolism
CPT/HCPCS: 84436; 84443

== ENCOUNTER 2021-08-28 15:03 | Outpatient (REF) | payer MEDICARE, SELFPAY ==
[2021-08-28 15:23] LABS: Appearance Urine CLOUDY; Color Urine YELLOW; Glucose Urine UA >=1000 MG/DL (NEG); Leukocyte Esterase Urine 1+ (NEG); Nitrite Urine POS (NEG); PH 5.5 (5.0-8.0); Specific Gravity - Urine 1.015 (1.005-1.025); Urine Blood 3+ (NEG); Urine Ketones 15 MG/DL (NEG); Urine Protein TRACE MG/DL (NEG-TRACE)
[2021-08-28 16:08] LABS: Bacteria Urine 4+ /LPF; WBC Urine 50-75 /HPF (0-4)
== END 2021-08-28 15:04 | disposition home or self-care (01) ==
LOC: HO.HVNA 15:03
PROVIDERS: Visit Provider Physician Assistant Medical
DX: N39.0 Urinary tract infection, site not specified (principal)
CPT/HCPCS: 81001

== ENCOUNTER 2021-10-19 10:15 | Outpatient (REF) | payer MEDICARE, SELFPAY ==
[2021-10-20 08:39] LABS: HBS Num1 2.83 mIU/mL (0-7.99); HBc Num1 0.22 S/CO (0.00-0.79); HIV AB/AG Nonreactive (Nonreactive); HIV Num 1 0.08 S/CO (0.00-0.99); Hepatitis B Core Antibody Nonreactive (Nonreactive); ~HepC Num1 0.18 S/CO (0.00-0.79); ~Hepatitis B Surface Antibody NONREACTIVE (Nonreactive); ~Hepatitis C Antibody Nonreactive (Nonreactive)
[2021-10-20 08:44] LABS: HBsAGNum1 0.19 S/CO (0.00-0.99); Hepatitis B Surface Antigen Negative (Negative)
[2021-10-22 09:00] LABS: Hepatitis A Antibody IgM 0.25 Index (0-0.79); ~Hepatitis A Antibody IgM Nonreactive (Nonreactive)
== END 2021-10-19 10:16 | disposition home or self-care (01) ==
LOC: HO.HVNA 10:15
PROVIDERS: Visit Provider Physician Assistant Medical
DX: Z77.21 Contact with and (suspected) exposure to potentially hazardous body fluids (principal); W46.0XXS Contact with hypodermic needle, sequela
CPT/HCPCS: 36415; 86704; 86706; 86709; 86803; 87340; 87389